=== PATIENT | male | born 1940 | race Caucasian/White ===

== ENCOUNTER 2019-05-09 08:47 | Inpatient (IN) ==
[2019-05-09] MEDS ORDERED: DEXTROSE 10% 250 ML BAG IV PRN (09:19)
[2019-05-09] MEDS ORDERED: GLUCAGON 1 MG VIAL IM PRN (09:19)
[2019-05-09 10:06] LABS: Basophils # 0.1 10*3/uL (0.0-0.2); Eosinophils # 0.3 10*3/uL (0.0-0.87); Eosinophils % 4.3 % (0.00-10.9); Hematocrit 42.6 VOL% (42.0-52.0); Immature Granulocytes % 0.3 %; Immature Granulocytes Absolute 0.02 #; Lymphocytes # 1.5 10*3/uL (1.4-4.0); Lymphocytes % 25.3 % (21.2-54.2); Mean Corpuscular HGB Conc 32.9 GM/DL (32-36); Mean Corpuscular Volume 92.2 FL (87-102); Mean Platelet Volume 9.9 FL (9.6-12.0); Monocytes % 15.5 % (1.7-12.7); Neutrophils % 53.6 % (38.7-73.9); Platelet Count 260 T/CUMM (130-400); Red Blood Count 4.62 MC/CUMM (3.8-5.5); Red Cell Distribution Width 12.6 % (9.3-17.3); White Blood Count 5.8 T/CUMM (4-12)
[2019-05-09 10:16] LABS: ABG Base Excess -0.4 MMOL/L (-2.5-2.5); ABG HCO3 24.3 MMOL/L (20-26); ABG Oxygen Saturation 96.9 % (95-100); ABG PCO2 39.8 MM HG (35-48); ABG PH 7.403 (7.35-7.45); ABG PO2 92.7 MM HG (80-95); ABG TCO2 25.5 MMOL/L (23-27)
[2019-05-09] MEDS ORDERED: NITROGLYCERIN SL 0.4 MG TABLET SL PRN (10:25)
[2019-05-09 10:37] LABS: Albumin 3.5 G/DL (3.4-5.0); Bilirubin,Total 0.8 MG/DL (0.2-1.0); Calcium 9.3 MG/DL (8.5-10.1); Osmolality,Calculated 271.1 MOS/KG (273-304); Total Protein 7.3 G/DL (6.4-8.3)
[2019-05-09] MEDS ORDERED: CLORAZEPATE 3.75 MG TABLET PO PRN (12:17)
[2019-05-09] MEDS: CHLORHEXIDINE 4% SOLN 118 ML BOTTLE TOP SCH ×2 (16:44→20:56)
[2019-05-09] MEDS: carvediloL 6.25 MG TABLET PO SCH (20:56)
[2019-05-09] MEDS: CHLORHEXIDINE 0.12% ORAL RINSE 60 ML BOTTLE SWISH/SPIT SCH (20:56)
[2019-05-10] MEDS ORDERED: PAPAVERINE 60 MG/2 ML VIAL ONE (04:21)
[2019-05-10] MEDS ORDERED: VANCOMYCIN 1,000 MG VIAL ONE (04:22)
[2019-05-10] MEDS ORDERED: VANCOMYCIN 500 MG VIAL ONE (04:22)
[2019-05-10] MEDS ORDERED: DIAZEPAM 5 MG TABLET PO ONE (04:55)
[2019-05-10] MEDS ORDERED: FAMOTIDINE 20 MG TABLET PO ONE (04:57)
[2019-05-10] MEDS ORDERED: SUFentanil 250 MCG/5 ML AMP ONE (06:04)
[2019-05-10] MEDS ORDERED: MIDAZOLAM 10 MG/2 ML VIAL ONE (06:04)
[2019-05-10] MEDS ORDERED: CEFUROXIME INJ 1,500 MG in SYRINGE 1 EACH IV ONE (07:00)
[2019-05-10 07:41] LABS: ABG Base Excess -1.2 MMOL/L (-2.5-2.5); ABG HCO3 23.5 MMOL/L (20-26); ABG Oxygen Saturation 99.9 % (95-100); ABG PCO2 38.7 MM HG (35-48); ABG PH 7.392 (7.35-7.45); ABG TCO2 20.8 MMOL/L (23-27); Glucose Heart Surgery 101 MG/DL (74-106); Hematocrit Heart Surgery 37.2 PERCENT (42-52); Hemoglobin Heart Surgery 12.1 G/DL (14.0-18.0); Ionized Calcium Arterial 1.15 MMOL/L (1.21-1.46); PCO2 Patient Temp Arterial 38.7 MMHG; PH Patient Temp Arterial 7.392; Patient Temperature 37 CELCIUS; Sodium Heart/CVR 137 MMOL/L (135-145)
[2019-05-10 07:57] LABS: Apearance,Urine CLEAR (Clear); Bilirubin,Urine Negative (Negative); Blood, Urine Moderate mg/dL (Negative); Glucose,Urine (UA) Negative (Negative); Ketones,Urine Negative (Negative); Mucus,Urine Occasional /LPF (Occasional); Nitrite,Urine Negative (Negative); Protein,Urine Negative; RBC,Urine 9 /HPF (0-4); Urine Color Yellow (Yellow); Urine Specific Gravity 1.016 (1.001-1.035); WBC,Urine <1 /HPF (0-6)
[2019-05-10 09:11] LABS: Hemoglobin Heart Surgery 8.4 G/DL (14.0-18.0); PCO2 Patient Temp Venous 30.7 MM HG; PH Patient Temp Venous 7.467; PO2 Patient Temp Venous 45.5 MM HG; Potassium Heart/CVR 4.8 MMOL/L (3.5-5.1); VBG Base Excess -1.8 MEQ/L (0-4); VBG HCO3 22.3 MEQ/L (24-28); VBG PH 7.422; VBG PO2 56.1 MMHG (17-40)
[2019-05-10 09:40] LABS: Hematocrit Heart Surgery 27.2 PERCENT (42-52); Hemoglobin Heart Surgery 8.8 G/DL (14.0-18.0); PH Patient Temp Venous 7.477; PO2 Patient Temp Venous 48.7 MM HG; Potassium Heart/CVR 4.9 MMOL/L (3.5-5.1); VBG Base Excess 1.9 MEQ/L (0-4); VBG HCO3 26.1 MEQ/L (24-28); VBG Oxygen Saturation 92.3 %; VBG PCO2 39.3 MMHG (41-51); VBG PH 7.433; VBG PO2 59.4 MMHG (17-40)
[2019-05-10 10:09] LABS: Hemoglobin Heart Surgery 9.6 G/DL (14.0-18.0); PCO2 Patient Temp Venous 32.4 MM HG; PH Patient Temp Venous 7.489; PO2 Patient Temp Venous 40.2 MM HG; Potassium Heart/CVR 5.3 MMOL/L (3.5-5.1); VBG Base Excess 0.9 MEQ/L (0-4); VBG HCO3 24.6 MEQ/L (24-28); VBG Oxygen Saturation 83.9 %; VBG PCO2 35.4 MMHG (41-51); VBG PH 7.459; VBG PO2 46.3 MMHG (17-40)
[2019-05-10] MEDS ORDERED: THROMBIN TOPICAL (RECOMBINANT) 5,000 UNIT VIAL TOP ONE (10:33)
[2019-05-10] MEDS ORDERED: MAGNESIUM SULFATE 5 GM/10 ML VIAL IV ONE (10:57)
[2019-05-10] MEDS ORDERED: DEXTROSE 5% KCL 20 MEQ 20 MEQ/1,000 ML BAG IV ONE (10:57)
[2019-05-10] MEDS ORDERED: ALBUMIN 25% 25 GM/100 ML VIAL IV ONE (10:57)
[2019-05-10] MEDS ORDERED: HEPARIN 10,000 UNIT/10 ML VIAL ONE (10:58)
[2019-05-10] MEDS ORDERED: FUROSEMIDE 20 MG/2 ML VIAL ONE (10:58)
[2019-05-10] MEDS ORDERED: MANNITOL 12.5 GM/50 ML VIAL IV ONE (10:58)
[2019-05-10] MEDS ORDERED: SODIUM BICARBONATE 50 MEQ/50 ML VIAL IV ONE (10:59)
[2019-05-10] MEDS ORDERED: methylPREDNISolone SOD SUC 1,000 MG/8 ML VIAL ONE (10:59)
[2019-05-10] MEDS ORDERED: LIDOCAINE 2% 5 ML VIAL ONE ×2 (10:59→12:00)
[2019-05-10] MEDS ORDERED: PROTAMINE SULFATE 250 MG/25 ML VIAL IV ONE (10:59)
[2019-05-10] MEDS ORDERED: MANNITOL 100 GM/500 ML BAG IV ONE (10:59)
[2019-05-10] MEDS ORDERED: PROTAMINE SULFATE 50 MG/5 ML VIAL IV ONE ×3 (10:59→12:33)
[2019-05-10 11:01] LABS: ABG Base Excess -0.8 MMOL/L (-2.5-2.5); ABG HCO3 23.8 MMOL/L (20-26); ABG PCO2 38.2 MM HG (35-48); ABG PH 7.402 (7.35-7.45); ABG TCO2 21.5 MMOL/L (23-27); Glucose Heart Surgery 179 MG/DL (74-106); Hematocrit Heart Surgery 31.6 PERCENT (42-52); Hemoglobin Heart Surgery 10.2 G/DL (14.0-18.0); Ionized Calcium Arterial 1.24 MMOL/L (1.21-1.46); PCO2 Patient Temp Arterial 38.2 MMHG; PH Patient Temp Arterial 7.402; Patient Temperature 37 CELCIUS; Potassium Heart/CVR 3.9 MMOL/L (3.5-5.1); Sodium Heart/CVR 134 MMOL/L (135-145)
[2019-05-10] MEDS ORDERED: ALBUMIN 5% 12.5 GM/250 ML VIAL IV ONE (11:33)
[2019-05-10] MEDS ORDERED: PHENYLEPHRINE DRIP 40 MG/250 ML PREMIX IV ONE (11:33)
[2019-05-10] MEDS ORDERED: ePHEDrine 50 MG/ML AMP ONE (12:00)
[2019-05-10] MEDS ORDERED: PHENYLEPHRINE DRIP 20 MG/250 ML PREMIX IV ONE (12:00)
[2019-05-10] MEDS ORDERED: VECURONIUM 10 MG VIAL IV ONE (12:00)
[2019-05-10] MEDS ORDERED: MINERAL OIL/PETROLATUM OPH OINT 3.5 GM TUBE ONE (12:00)
[2019-05-10] MEDS ORDERED: SEVOFLURANE 1 UNIT/15 MINUTE INH ONE (12:00)
[2019-05-10] MEDS ORDERED: CALCIUM CHLORIDE 1,000 MG/10 ML VIAL IV ONE (12:00)
[2019-05-10] MEDS ORDERED: AMINOCAPROIC ACID 5,000 MG/20 ML VIAL ONE (12:01)
[2019-05-10] MEDS ORDERED: SODIUM CHLORIDE 0.9% 1,000 ML IV ONE (12:01)
[2019-05-10] MEDS ORDERED: SUCCINYLCHOLINE 200 MG/10 ML VIAL ONE (12:01)
[2019-05-10] MEDS ORDERED: LACTATED RINGERS 1,000 ML IV ONE (12:01)
[2019-05-10] MEDS ORDERED: SODIUM CHLORIDE 0.9% 200 ML IV ONE (12:01)
[2019-05-10] MEDS ORDERED: SODIUM CHLORIDE 0.9% 250 ML IV ONE (12:01)
[2019-05-10] MEDS ORDERED: GLYCOPYRROLATE 0.4 MG/2 ML VIAL ONE (12:01)
[2019-05-10] MEDS ORDERED: ETOMIDATE 40 MG/20 ML VIAL IV ONE (12:01)
[2019-05-10] MEDS ORDERED: POTASSIUM CHLORIDE RIDER 10 MEQ in PREMIX 1 EACH IV PRN (12:10)
[2019-05-10] MEDS ORDERED: DEXTROSE 10% 250 ML BAG IV PRN ×2 (12:10)
[2019-05-10] MEDS ORDERED: NITROPRUSSIDE 100 MG in DEXTROSE 5% 250 ML IV PRN (12:10)
[2019-05-10] MEDS ORDERED: MIDAZOLAM 10 MG/2 ML VIAL IV PRN (12:10)
[2019-05-10] MEDS ORDERED: MORPHINE 10 MG/1 ML VIAL IV PRN (12:10)
[2019-05-10] MEDS ORDERED: LACTATED RINGERS 250 ML IV PRN (12:10)
[2019-05-10] MEDS ORDERED: MAGNESIUM SULF RIDER 4 GM in PREMIX 1 EACH IV PRN (12:10)
[2019-05-10] MEDS ORDERED: CHLORHEXIDINE 4% SOLN 118 ML BOTTLE TOP PRN (12:10)
[2019-05-10] MEDS ORDERED: MAGNESIUM SULF RIDER 2 GM in PREMIX 1 EACH IV PRN (12:10)
[2019-05-10] MEDS ORDERED: PHENYLEPHRINE DRIP 40 MG/250 ML PREMIX IV PRN (12:10)
[2019-05-10] MEDS ORDERED: INSULIN REGULAR 100 UNIT/ML IV PRN (12:10)
[2019-05-10] MEDS ORDERED: INSULIN REGULAR 100 UNIT/ML IV ONE (12:10)
[2019-05-10] MEDS ORDERED: INSULIN REGULAR DRIP 100 ML IV SCH (12:10)
[2019-05-10] MEDS ORDERED: CALCIUM CHLORIDE 1,000 MG/10 ML SYRINGE IV PRN (12:10)
[2019-05-10] MEDS ORDERED: SODIUM CHLORIDE 0.45% 1,000 ML IV SCH ×2 (12:10)
[2019-05-10] MEDS ORDERED: VECURONIUM 10 MG VIAL IV PRN ×2 (12:10)
[2019-05-10] MEDS ORDERED: ACETAMINOPHEN 650 MG SUPP RECTAL PRN (12:10)
[2019-05-10] MEDS ORDERED: ONDANSETRON 4 MG/2 ML VIAL IV PRN (12:10)
[2019-05-10] MEDS ORDERED: MORPHINE 4 MG/1 ML VIAL IV PRN (12:10)
[2019-05-10 12:16] LABS: ABG Base Excess -0.6 MMOL/L (-2.5-2.5); ABG HCO3 23.9 MMOL/L (20-26); ABG Oxygen Saturation 99.1 % (95-100); ABG PCO2 41.7 MM HG (35-48); ABG PH 7.377 (7.35-7.45); ABG TCO2 21.8 MMOL/L (23-27); Glucose Heart Surgery 165 MG/DL (74-106); Hematocrit Heart Surgery 36.4 PERCENT (42-52); Hemoglobin Heart Surgery 11.8 G/DL (14.0-18.0); Potassium Heart/CVR 3.7 MMOL/L (3.5-5.1)
[2019-05-10] MEDS: ALBUMIN 5% 12.5 GM in PREMIX 1 EACH IV PRN ×4 (12:18→21:12)
[2019-05-10] MEDS: LACTATED RINGERS 1,000 ML IV PRN ×4 (12:25→18:45)
[2019-05-10] MEDS: SODIUM CHLORIDE 0.9% 1,000 ML IV SCH (12:32)
[2019-05-10] MEDS: CHLORHEXIDINE 0.12% ORAL RINSE 60 ML BOTTLE SWISH/SPIT SCH ×2 (12:32→20:33)
[2019-05-10] MEDS: carvediloL 6.25 MG TABLET PO SCH (12:32)
[2019-05-10 12:36] LABS: Basophils % 0.4 % (0.0-0.8); CKMB % 4.5 %; Eosinophils # 0.1 10*3/uL (0.0-0.87); Eosinophils % 0.9 % (0.00-10.9); Immature Granulocytes % 0.6 %; Immature Granulocytes Absolute 0.05 #; Lymphocytes # 0.6 10*3/uL (1.4-4.0); Lymphocytes % 7.4 % (21.2-54.2); Mean Corpuscular HGB Conc 33.1 GM/DL (32-36); Mean Corpuscular Volume 90.7 FL (87-102); Monocytes % 6.6 % (1.7-12.7); Neutrophils % 84.1 % (38.7-73.9); Platelet Count 204 T/CUMM (130-400); Red Blood Count 3.86 MC/CUMM (3.8-5.5); Red Cell Distribution Width 12.4 % (9.3-17.3); White Blood Count 8.1 T/CUMM (4-12)
[2019-05-10] MEDS: CHLORHEXIDINE 4% SOLN 118 ML BOTTLE TOP SCH (12:36)
[2019-05-10 12:41] LABS: Hemoglobin 11.6 GM/DL (14.0-18.0); INR 1.2; PT Patient Result 12.9 SECS (9.6-12.2); Partial Thromboplastin Time 26.8 SECS (20.8-36.0); Troponin I 3.79 NG/ML (0.00-0.045)
[2019-05-10 12:42] LABS: Albumin 3.1 G/DL (3.4-5.0); Bilirubin,Total 2.2 MG/DL (0.2-1.0); Calcium 8.9 MG/DL (8.5-10.1); Total Protein 6.1 G/DL (6.4-8.3)
[2019-05-10 13:52] LABS: ABG Base Excess -1.3 MMOL/L (-2.5-2.5); ABG HCO3 23.3 MMOL/L (20-26); ABG Oxygen Saturation 99.3 % (95-100); ABG PCO2 40.2 MM HG (35-48); ABG PH 7.378 (7.35-7.45); ABG TCO2 21.6 MMOL/L (23-27); Glucose Heart Surgery 157 MG/DL (74-106); Hematocrit Heart Surgery 30.6 PERCENT (42-52); Hemoglobin Heart Surgery 9.9 G/DL (14.0-18.0); Potassium Heart/CVR 3.7 MMOL/L (3.5-5.1)
[2019-05-10] MEDS: POTASSIUM CHLORIDE RIDER 20 MEQ in PREMIX 1 EACH IV PRN ×2 (13:54→21:54)
[2019-05-10 14:53] LABS: VBG Base Excess -0.1 MEQ/L (0-4); VBG HCO3 23.7 MEQ/L (24-28); VBG Oxygen Saturation 60.7 %; VBG PCO2 46.7 MMHG (41-51); VBG PH 7.351; VBG PO2 34.2 MMHG (17-40)
[2019-05-10 15:32] LABS: ABG Base Excess -1.1 MMOL/L (-2.5-2.5); ABG HCO3 23.5 MMOL/L (20-26); ABG Oxygen Saturation 97.9 % (95-100); ABG PH 7.384 (7.35-7.45); ABG PO2 98.6 MM HG (80-95); ABG TCO2 21.7 MMOL/L (23-27); Glucose Heart Surgery 167 MG/DL (74-106); Hematocrit Heart Surgery 31.1 PERCENT (42-52); Hemoglobin Heart Surgery 10.1 G/DL (14.0-18.0)
[2019-05-10] MEDS: MIDAZOLAM 2 MG/2 ML VIAL IV PRN ×2 (16:08→17:40)
[2019-05-10 16:47] LABS: ABG Base Excess -1.5 MMOL/L (-2.5-2.5); ABG HCO3 23.2 MMOL/L (20-26); ABG Oxygen Saturation 98.3 % (95-100); ABG TCO2 21.6 MMOL/L (23-27); Glucose Heart Surgery 175 MG/DL (74-106); Hematocrit Heart Surgery 30.6 PERCENT (42-52); Hemoglobin Heart Surgery 9.9 G/DL (14.0-18.0); Potassium Heart/CVR 3.9 MMOL/L (3.5-5.1)
[2019-05-10 18:54] LABS: ABG Base Excess -0.9 MMOL/L (-2.5-2.5); ABG HCO3 23.7 MMOL/L (20-26); ABG Oxygen Saturation 98.5 % (95-100); ABG PCO2 42.6 MM HG (35-48); ABG PH 7.367 (7.35-7.45); ABG TCO2 22.2 MMOL/L (23-27); Glucose Heart Surgery 184 MG/DL (74-106); Hematocrit Heart Surgery 31.7 PERCENT (42-52); Hemoglobin Heart Surgery 10.3 G/DL (14.0-18.0); Potassium Heart/CVR 3.8 MMOL/L (3.5-5.1)
[2019-05-10] MEDS: CEFUROXIME INJ 1,500 MG in SYRINGE 1 EACH IV SCH (19:09)
[2019-05-10 19:47] LABS: ABG HCO3 23.6 MMOL/L (20-26); ABG Oxygen Saturation 98.2 % (95-100); ABG PCO2 42.6 MM HG (35-48); ABG PH 7.365 (7.35-7.45); ABG TCO2 22.3 MMOL/L (23-27); Glucose Heart Surgery 185 MG/DL (74-106); Hematocrit Heart Surgery 30.2 PERCENT (42-52); Hemoglobin Heart Surgery 9.8 G/DL (14.0-18.0); Potassium Heart/CVR 3.9 MMOL/L (3.5-5.1)
[2019-05-10] MEDS: INSULIN REGULAR 100 UNIT/ML SUBCUT SCH (20:31)
[2019-05-10 21:02] LABS: ABG Base Excess -0.9 MMOL/L (-2.5-2.5); ABG HCO3 23.7 MMOL/L (20-26); ABG Oxygen Saturation 98.5 % (95-100); ABG PCO2 47.1 MM HG (35-48); ABG PH 7.337 (7.35-7.45); ABG TCO2 23.1 MMOL/L (23-27); Glucose Heart Surgery 193 MG/DL (74-106); Hematocrit Heart Surgery 31.3 PERCENT (42-52); Hemoglobin Heart Surgery 10.1 G/DL (14.0-18.0)
[2019-05-10 21:27] LABS: CKMB % 3.3 %
[2019-05-10 21:45] LABS: Troponin I 4.29 NG/ML (0.00-0.045)
[2019-05-10 22:27] LABS: ABG Base Excess -0.2 MMOL/L (-2.5-2.5); ABG HCO3 24.3 MMOL/L (20-26); ABG Oxygen Saturation 99.1 % (95-100); ABG PCO2 31.2 MM HG (35-48); ABG PH 7.472 (7.35-7.45); ABG TCO2 20.8 MMOL/L (23-27); Glucose Heart Surgery 190 MG/DL (74-106); Hematocrit Heart Surgery 29.3 PERCENT (42-52); Hemoglobin Heart Surgery 9.4 G/DL (14.0-18.0); Potassium Heart/CVR 4.3 MMOL/L (3.5-5.1)
[2019-05-10 22:59] LABS: ABG Base Excess -0.7 MMOL/L (-2.5-2.5); ABG HCO3 23.9 MMOL/L (20-26); ABG Oxygen Saturation 99.3 % (95-100); ABG PCO2 32.5 MM HG (35-48); ABG PH 7.452 (7.35-7.45); ABG TCO2 20.7 MMOL/L (23-27); Glucose Heart Surgery 196 MG/DL (74-106); Hemoglobin Heart Surgery 9.7 G/DL (14.0-18.0); Potassium Heart/CVR 4.2 MMOL/L (3.5-5.1)
[2019-05-10 23:56] LABS: ABG Base Excess -1.2 MMOL/L (-2.5-2.5); ABG HCO3 23.4 MMOL/L (20-26); ABG Oxygen Saturation 99.3 % (95-100); ABG PCO2 35.1 MM HG (35-48); ABG PH 7.421 (7.35-7.45); ABG TCO2 20.8 MMOL/L (23-27); Glucose Heart Surgery 201 MG/DL (74-106); Hematocrit Heart Surgery 29.9 PERCENT (42-52); Hemoglobin Heart Surgery 9.7 G/DL (14.0-18.0)
[2019-05-11] MEDS: INSULIN REGULAR 100 UNIT/ML SUBCUT SCH ×3 (00:25→08:20)
[2019-05-11 00:50] LABS: ABG Base Excess -1.3 MMOL/L (-2.5-2.5); ABG HCO3 23.3 MMOL/L (20-26); ABG Oxygen Saturation 98.5 % (95-100); ABG PCO2 42.5 MM HG (35-48); ABG PH 7.361 (7.35-7.45); ABG TCO2 22.1 MMOL/L (23-27); Glucose Heart Surgery 203 MG/DL (74-106); Hematocrit Heart Surgery 29.1 PERCENT (42-52); Hemoglobin Heart Surgery 9.4 G/DL (14.0-18.0); Potassium Heart/CVR 3.8 MMOL/L (3.5-5.1)
[2019-05-11] MEDS: POTASSIUM CHLORIDE RIDER 20 MEQ in PREMIX 1 EACH IV PRN (01:02)
[2019-05-11 03:26] LABS: ABG Base Excess -1.5 MMOL/L (-2.5-2.5); ABG HCO3 23.2 MMOL/L (20-26); ABG Oxygen Saturation 97.2 % (95-100); ABG PCO2 43.2 MM HG (35-48); ABG PH 7.355 (7.35-7.45); ABG PO2 94.3 MM HG (80-95); ABG TCO2 21.8 MMOL/L (23-27); Glucose Heart Surgery 194 MG/DL (74-106); Hematocrit Heart Surgery 32.7 PERCENT (42-52); Hemoglobin Heart Surgery 10.6 G/DL (14.0-18.0); Potassium Heart/CVR 4.1 MMOL/L (3.5-5.1)
[2019-05-11 03:30] LABS: Basophils % 0.1 % (0.0-0.8); Hematocrit 30.4 VOL% (42.0-52.0); Hemoglobin 10.2 GM/DL (14.0-18.0); Immature Granulocytes % 0.4 %; Immature Granulocytes Absolute 0.03 #; Lymphocytes # 0.4 10*3/uL (1.4-4.0); Mean Corpuscular HGB Conc 33.6 GM/DL (32-36); Mean Corpuscular Volume 89.4 FL (87-102); Mean Platelet Volume 10.3 FL (9.6-12.0); Monocytes % 4.6 % (1.7-12.7); Neutrophils % 89.9 % (38.7-73.9); Platelet Count 137 T/CUMM (130-400); Red Cell Distribution Width 14.2 % (9.3-17.3); White Blood Count 8.3 T/CUMM (4-12)
[2019-05-11 03:45] LABS: Albumin 3.5 G/DL (3.4-5.0); Bilirubin,Direct 0.52 MG/DL (0.0-0.20); Calcium 8.2 MG/DL (8.5-10.1); Osmolality,Calculated 283.7 MOS/KG (273-304); Total Protein 5.9 G/DL (6.4-8.3)
[2019-05-11 03:59] LABS: Troponin I 3.54 NG/ML (0.00-0.045)
[2019-05-11] MEDS ORDERED: FUROSEMIDE 40 MG/4 ML VIAL IV ONE (05:03)
[2019-05-11] MEDS: CEFUROXIME INJ 1,500 MG in SYRINGE 1 EACH IV SCH ×2 (06:59→20:32)
[2019-05-11] MEDS: CHLORHEXIDINE 0.12% ORAL RINSE 60 ML BOTTLE SWISH/SPIT SCH ×3 (08:21→20:33)
[2019-05-11] MEDS: ALBUMIN 5% 12.5 GM in PREMIX 1 EACH IV PRN (08:39)
[2019-05-11] MEDS ORDERED: ALUMINUM/MAGNES/SIMETH MAX STR 30 ML UDCUP PO PRN (08:45)
[2019-05-11] MEDS ORDERED: POTASSIUM CHLORIDE 20 MEQ TABLET PO PRN (08:45)
[2019-05-11] MEDS ORDERED: GLUCAGON 1 MG VIAL IM PRN (08:45)
[2019-05-11] MEDS ORDERED: ZALEPLON 5 MG CAPSULE PO PRN (08:45)
[2019-05-11] MEDS ORDERED: MAGNESIUM HYDROXIDE SUSP 30 ML UDCUP PO PRN (08:45)
[2019-05-11] MEDS ORDERED: MAGNESIUM SULF RIDER 4 GM in PREMIX 1 EACH IV PRN (08:45)
[2019-05-11] MEDS ORDERED: MAGNESIUM SULF RIDER 2 GM in PREMIX 1 EACH IV PRN (08:45)
[2019-05-11] MEDS: FERROUS SULFATE 325 MG TABLET PO SCH (09:16)
[2019-05-11] MEDS: PANTOPRAZOLE 40 MG TABLET PO SCH (09:16)
[2019-05-11] MEDS: PARoxetine 10 MG TABLET PO SCH (09:16)
[2019-05-11] MEDS: DOCUSATE SODIUM 100 MG CAPSULE PO SCH (09:16)
[2019-05-11] MEDS: ONDANSETRON 4 MG/2 ML VIAL IV PRN (09:40)
[2019-05-11] MEDS: SODIUM CHLOR 0.45% KCL 20 MEQ 20 MEQ/1,000 ML BAG IV SCH (10:21)
[2019-05-11 12:39] LABS: CKMB % 2.6 %
[2019-05-11 12:43] LABS: Troponin I 2.85 NG/ML (0.00-0.045)
[2019-05-11] MEDS: oxyCODONE/ACETAMINOPHEN 5-325 MG TABLET PO PRN (14:24)
[2019-05-11] MEDS: carvediloL 6.25 MG TABLET PO SCH (20:32)
[2019-05-11] MEDS: ROSUVASTATIN 20 MG TABLET PO SCH (20:32)
[2019-05-12] MEDS: oxyCODONE/ACETAMINOPHEN 5-325 MG TABLET PO PRN ×2 (00:50→12:22)
[2019-05-12 04:35] LABS: Basophils % 0.1 % (0.0-0.8); Hematocrit 27.9 VOL% (42.0-52.0); Immature Granulocytes % 0.6 %; Immature Granulocytes Absolute 0.09 #; Lymphocytes # 1.2 10*3/uL (1.4-4.0); Lymphocytes % 7.4 % (21.2-54.2); Mean Corpuscular HGB Conc 32.3 GM/DL (32-36); Mean Platelet Volume 11.3 FL (9.6-12.0); Monocytes % 11.4 % (1.7-12.7); Neutrophils % 80.5 % (38.7-73.9); Platelet Count 148 T/CUMM (130-400); Red Cell Distribution Width 14.8 % (9.3-17.3); White Blood Count 16.1 T/CUMM (4-12)
[2019-05-12 05:12] LABS: Albumin 3.2 G/DL (3.4-5.0); Bilirubin,Direct 0.37 MG/DL (0.0-0.20); Bilirubin,Total 1.1 MG/DL (0.2-1.0); Calcium 8.2 MG/DL (8.5-10.1); Total Protein 5.8 G/DL (6.4-8.3)
[2019-05-12 05:16] LABS: Albumin 3.2 G/DL (3.4-5.0); Bilirubin,Direct 0.39 MG/DL (0.0-0.20); Bilirubin,Indirect 0.7 MG/DL (0.0-1.0); Bilirubin,Total 1.1 MG/DL (0.2-1.0); CKMB % 1.2 %; Total Protein 5.9 G/DL (6.4-8.3)
[2019-05-12 05:20] LABS: Troponin I 2.15 NG/ML (0.00-0.045)
[2019-05-12] MEDS ORDERED: FUROSEMIDE 40 MG/4 ML VIAL IV ONE (06:00)
[2019-05-12] MEDS: CHLORHEXIDINE 0.12% ORAL RINSE 60 ML BOTTLE SWISH/SPIT SCH ×2 (09:03→22:06)
[2019-05-12] MEDS: PARoxetine 10 MG TABLET PO SCH (09:04)
[2019-05-12] MEDS: PANTOPRAZOLE 40 MG TABLET PO SCH (09:04)
[2019-05-12] MEDS: DOCUSATE SODIUM 100 MG CAPSULE PO SCH (09:04)
[2019-05-12] MEDS: FERROUS SULFATE 325 MG TABLET PO SCH (09:04)
[2019-05-12] MEDS: amLODIPine 10 MG TABLET PO SCH (09:05)
[2019-05-12] MEDS: SODIUM CHLOR 0.45% KCL 20 MEQ 20 MEQ/1,000 ML BAG IV SCH (09:05)
[2019-05-12] MEDS: carvediloL 6.25 MG TABLET PO SCH (09:05)
[2019-05-12] MEDS: ONDANSETRON 4 MG/2 ML VIAL IV PRN (12:22)
[2019-05-12] MEDS: ASPIRIN EC 81 MG TABLET PO SCH (12:22)
[2019-05-12] MEDS: ROSUVASTATIN 20 MG TABLET PO SCH (22:06)
[2019-05-12] MEDS: carvediloL 3.125 MG TABLET PO SCH (22:06)
[2019-05-13] MEDS: oxyCODONE/ACETAMINOPHEN 5-325 MG TABLET PO PRN (01:40)
[2019-05-13 06:55] LABS: Basophils % 0.1 % (0.0-0.8); Eosinophils % 0.1 % (0.00-10.9); Hemoglobin 9.2 GM/DL (14.0-18.0); Immature Granulocytes % 0.7 %; Immature Granulocytes Absolute 0.08 #; Lymphocytes # 1.4 10*3/uL (1.4-4.0); Lymphocytes % 13.2 % (21.2-54.2); Mean Corpuscular HGB Conc 31.7 GM/DL (32-36); Mean Corpuscular Volume 93.5 FL (87-102); Mean Platelet Volume 11.4 FL (9.6-12.0); Monocytes % 12.6 % (1.7-12.7); Neutrophils % 73.3 % (38.7-73.9); Platelet Count 162 T/CUMM (130-400); Red Cell Distribution Width 14.3 % (9.3-17.3); White Blood Count 10.9 T/CUMM (4-12)
[2019-05-13 07:19] LABS: Albumin 3.1 G/DL (3.4-5.0); Bilirubin,Direct 0.38 MG/DL (0.0-0.20); Bilirubin,Total 1.1 MG/DL (0.2-1.0); Calcium 8.4 MG/DL (8.5-10.1); Osmolality,Calculated 280.1 MOS/KG (273-304)
[2019-05-13 07:30] LABS: Alanine Aminotransferase 34 U/L (16-61); Albumin 3.2 G/DL (3.4-5.0); Alkaline Phosphatase 63 U/L (45-117); Aspartate Amino Transferase 59 U/L (0-37); Bilirubin,Indirect 0.7 MG/DL (0.0-1.0); Total Protein 6.1 G/DL (6.4-8.3)
[2019-05-13] MEDS ORDERED: IBUPROFEN 200 MG TABLET PO PRN (08:25)
[2019-05-13] MEDS ORDERED: ACETAMINOPHEN 325 MG TABLET PO PRN (08:27)
[2019-05-13] MEDS: SODIUM CHLORIDE 0.9% 1,000 ML IV SCH ×2 (10:20→21:41)
[2019-05-13] MEDS: PARoxetine 10 MG TABLET PO SCH (10:20)
[2019-05-13] MEDS: DOCUSATE SODIUM 100 MG CAPSULE PO SCH (10:21)
[2019-05-13] MEDS: ASCORBIC ACID 500 MG TABLET PO SCH ×2 (10:21→21:52)
[2019-05-13] MEDS: PANTOPRAZOLE 40 MG TABLET PO SCH (10:21)
[2019-05-13] MEDS: FERROUS SULFATE 325 MG TABLET PO SCH (10:21)
[2019-05-13] MEDS: ASPIRIN EC 81 MG TABLET PO SCH (10:21)
[2019-05-13] MEDS: POTASSIUM CHLORIDE 20 MEQ TABLET PO SCH ×3 (10:21→13:50)
[2019-05-13] MEDS: carvediloL 3.125 MG TABLET PO SCH (10:21)
[2019-05-13] MEDS: CHLORHEXIDINE 0.12% ORAL RINSE 60 ML BOTTLE SWISH/SPIT SCH ×2 (10:33→21:51)
[2019-05-13] MEDS: amLODIPine 10 MG TABLET PO SCH (11:17)
[2019-05-13] MEDS ORDERED: LACTULOSE 20 GM/30 ML UDCUP PO PRN (16:19)
[2019-05-13] MEDS ORDERED: PHENYLEPHRINE DRIP 40 MG/250 ML PREMIX IV ONE (17:43)
[2019-05-13] MEDS ORDERED: ALBUMIN 5% 25 GM in PREMIX 1 EACH IV ONE (18:00)
[2019-05-13] MEDS: PHENYLEPHRINE DRIP 40 MG/250 ML PREMIX IV PRN (18:13)
[2019-05-13 18:30] LABS: Basophils % 0.1 % (0.0-0.8); Eosinophils % 0.5 % (0.00-10.9); Hematocrit 45.4 VOL% (42.0-52.0); Immature Granulocytes % 0.7 %; Immature Granulocytes Absolute 0.06 #; Lymphocytes # 1.8 10*3/uL (1.4-4.0); Lymphocytes % 21.7 % (21.2-54.2); Mean Corpuscular HGB Conc 31.5 GM/DL (32-36); Mean Corpuscular Volume 93.6 FL (87-102); Mean Platelet Volume 11.5 FL (9.6-12.0); Monocytes % 3.7 % (1.7-12.7); Neutrophils % 73.3 % (38.7-73.9); Platelet Count 227 T/CUMM (130-400); Red Blood Count 4.85 MC/CUMM (3.8-5.5); White Blood Count 8.1 T/CUMM (4-12)
[2019-05-13 18:35] LABS: Hemoglobin 14.3 GM/DL (14.0-18.0)
[2019-05-13 18:36] LABS: Osmolality,Calculated 285.2 MOS/KG (273-304)
[2019-05-13] MEDS ORDERED: PROMETHAZINE INJ 12.5 MG in SODIUM CHLORIDE 0.9% 50 ML IV ONE (19:23)
[2019-05-13 19:34] LABS: Hematocrit 40.8 VOL% (42.0-52.0); Hemoglobin 13.1 GM/DL (14.0-18.0)
[2019-05-13 19:53] LABS: ABG Base Excess -4.6 MMOL/L (-2.5-2.5); ABG HCO3 20.6 MMOL/L (20-26); ABG Oxygen Saturation 95.5 % (95-100); ABG PCO2 31.5 MM HG (35-48); ABG PH 7.394 (7.35-7.45); ABG PO2 81.9 MM HG (80-95); ABG TCO2 16.7 MMOL/L (23-27); Allen Test Positive
[2019-05-13] MEDS ORDERED: LACTATED RINGERS 500 ML IV ONE (20:36)
[2019-05-13] MEDS ORDERED: MINERAL OIL ENEMA 133 ML BOTTLE RECTAL ONE (21:34)
[2019-05-13] MEDS: ROSUVASTATIN 20 MG TABLET PO SCH (21:51)
[2019-05-13] MEDS: ONDANSETRON 4 MG/2 ML VIAL IV PRN (21:52)
[2019-05-14 00:30] LABS: ABG Base Excess -2.9 MMOL/L (-2.5-2.5); ABG Oxygen Saturation 94.7 % (95-100); ABG PCO2 29.6 MM HG (35-48); ABG PO2 73.3 MM HG (80-95); ABG TCO2 17.4 MMOL/L (23-27); Allen Test Positive
[2019-05-14] MEDS: PHENYLEPHRINE DRIP 40 MG/250 ML PREMIX IV PRN ×6 (00:33→22:30)
[2019-05-14 02:29] LABS: Alanine Aminotransferase 83 U/L (16-61); Albumin 2.8 G/DL (3.4-5.0); Alkaline Phosphatase 95 U/L (45-117); Aspartate Amino Transferase 201 U/L (0-37); Blood Urea Nitrogen 60 MG/DL (7-18); Calcium 7.6 MG/DL (8.5-10.1); Estimated Glom Filtration Rate 32 ML/MIN; Glucose 90 MG/DL (74-106); Osmolality,Calculated 286.1 MOS/KG (273-304); Total Protein 5.4 G/DL (6.4-8.3)
[2019-05-14 04:08] LABS: Basophils % 0.3 % (0.0-0.8); Hematocrit 37.5 VOL% (42.0-52.0); Hemoglobin 12.5 GM/DL (14.0-18.0); Immature Granulocytes % 0.3 %; Immature Granulocytes Absolute 0.04 #; Lymphocytes # 1.1 10*3/uL (1.4-4.0); Mean Corpuscular HGB Conc 33.3 GM/DL (32-36); Mean Corpuscular Volume 90.4 FL (87-102); Mean Platelet Volume 11.5 FL (9.6-12.0); Monocytes % 5.9 % (1.7-12.7); NRBC # 0.02 10*3/uL; Neutrophils % 86.5 % (38.7-73.9); Platelet Count 206 T/CUMM (130-400); Red Blood Count 4.15 MC/CUMM (3.8-5.5); Red Cell Distribution Width 13.9 % (9.3-17.3); White Blood Count 15.9 T/CUMM (4-12)
[2019-05-14] MEDS: ACETAMINOPHEN 325 MG TABLET PO PRN (04:18)
[2019-05-14] MEDS: SODIUM CHLORIDE 0.9% 1,000 ML IV SCH ×3 (04:32→20:08)
[2019-05-14 04:34] LABS: Band Neutrophils 9 % (0-10); Hypochromasia Slight; Lymphocytes 8 % (20-55); Ovalocytes Slight; Platelet Estimate Adequate; Segmented Neutrophils 80 % (50-85); Total Cells Counted 100
[2019-05-14 04:41] LABS: Calcium 7.5 MG/DL (8.5-10.1); Osmolality,Calculated 287.1 MOS/KG (273-304)
[2019-05-14] MEDS ORDERED: FUROSEMIDE 40 MG/4 ML VIAL IV ONE ×2 (06:07→16:35)
[2019-05-14] MEDS ORDERED: CLINDAMYCIN INJ 600 MG in PREMIX 1 EACH IV SCH (06:30)
[2019-05-14] MEDS ORDERED: LACTATED RINGERS 500 ML IV ONE ×3 (07:14→12:00)
[2019-05-14] MEDS ORDERED: LEVOFLOXACIN INJ 500 MG in PREMIX 1 EACH IV ONE (08:00)
[2019-05-14] MEDS: ASCORBIC ACID 500 MG TABLET PO SCH ×2 (08:01→21:17)
[2019-05-14] MEDS: FERROUS SULFATE 325 MG TABLET PO SCH (08:02)
[2019-05-14] MEDS: PIPERACILLIN/TAZOBACTAM 3,375 MG in SODIUM CHLORIDE 0.9% 100 ML IV SCH ×2 (08:02→16:11)
[2019-05-14] MEDS: DOCUSATE SODIUM 100 MG CAPSULE PO SCH (08:02)
[2019-05-14] MEDS: ASPIRIN EC 81 MG TABLET PO SCH (08:02)
[2019-05-14] MEDS: PARoxetine 10 MG TABLET PO SCH (08:02)
[2019-05-14] MEDS: CHLORHEXIDINE 0.12% ORAL RINSE 60 ML BOTTLE SWISH/SPIT SCH ×2 (08:02→21:17)
[2019-05-14] MEDS: PANTOPRAZOLE 40 MG TABLET PO SCH (08:02)
[2019-05-14 09:46] LABS: ABG Base Excess -5.1 MMOL/L (-2.5-2.5); ABG HCO3 20.1 MMOL/L (20-26); ABG Oxygen Saturation 91.9 % (95-100); ABG PCO2 32.2 MM HG (35-48); ABG PH 7.381 (7.35-7.45); ABG PO2 66.9 MM HG (80-95); ABG TCO2 17.1 MMOL/L (23-27); Allen Test Positive
[2019-05-14 10:36] LABS: Basophils % 0.2 % (0.0-0.8); Hematocrit 34.5 VOL% (42.0-52.0); Hemoglobin 11.2 GM/DL (14.0-18.0); Immature Granulocytes % 0.3 %; Immature Granulocytes Absolute 0.06 #; Lymphocytes # 1.1 10*3/uL (1.4-4.0); Mean Corpuscular HGB Conc 32.5 GM/DL (32-36); Mean Corpuscular Volume 92.5 FL (87-102); Mean Platelet Volume 11.5 FL (9.6-12.0); Monocytes % 6.7 % (1.7-12.7); NRBC # 0.02 10*3/uL; Neutrophils % 86.8 % (38.7-73.9); Platelet Count 206 T/CUMM (130-400); Red Blood Count 3.73 MC/CUMM (3.8-5.5); Red Cell Distribution Width 14.2 % (9.3-17.3); White Blood Count 17.6 T/CUMM (4-12)
[2019-05-14 10:56] LABS: Band Neutrophils 13 % (0-10); Lymphocytes 10 % (20-55); Metamyelocytes 2 %; Segmented Neutrophils 67 % (50-85); Total Cells Counted 100
[2019-05-14 10:57] LABS: Hypochromasia Slight; Microcytosis Slight; Polychromasia Slight
[2019-05-14 11:00] LABS: Bilirubin,Direct 1.01 MG/DL (0.0-0.20)
[2019-05-14 11:43] LABS: Albumin 2.4 G/DL (3.4-5.0); Bilirubin,Total 1.9 MG/DL (0.2-1.0); Calcium 7.1 MG/DL (8.5-10.1); Osmolality,Calculated 293.7 MOS/KG (273-304); Total Protein 4.8 G/DL (6.4-8.3)
[2019-05-14] MEDS ORDERED: ceFAZolin 1,000 MG in SYRINGE 1 EACH IV ONE (11:58)
[2019-05-14] MEDS ORDERED: EPINEPHrine 1 MG/ML VIAL ONE (15:22)
[2019-05-14] MEDS ORDERED: SEVOFLURANE 1 UNIT/15 MINUTE INH ONE (15:22)
[2019-05-14] MEDS ORDERED: fentaNYL 100 MCG/2 ML VIAL ONE (15:22)
[2019-05-14] MEDS ORDERED: ONDANSETRON 4 MG/2 ML VIAL ONE (15:22)
[2019-05-14] MEDS ORDERED: SODIUM CHLORIDE 0.9% 250 ML IV ONE (15:23)
[2019-05-14] MEDS ORDERED: LACTATED RINGERS 1,000 ML IV ONE (15:23)
[2019-05-14] MEDS ORDERED: ROCURONIUM 100 MG/10 ML VIAL IV ONE (15:23)
[2019-05-14] MEDS ORDERED: PHENYLEPHRINE 10 MG/1 ML VIAL IV ONE (15:23)
[2019-05-14] MEDS ORDERED: PHENYLEPHRINE 1 MG/10 ML SYRINGE IV ONE (15:23)
[2019-05-14] MEDS ORDERED: ETOMIDATE 40 MG/20 ML VIAL IV ONE (15:23)
[2019-05-14] MEDS ORDERED: SUCCINYLCHOLINE 200 MG/10 ML VIAL ONE (15:23)
[2019-05-14 15:37] LABS: ABG Base Excess -10.2 MMOL/L (-2.5-2.5); ABG HCO3 16.3 MMOL/L (20-26); ABG Oxygen Saturation 93.7 % (95-100); ABG PCO2 42.1 MM HG (35-48); ABG PH 7.219 (7.35-7.45); ABG PO2 87.2 MM HG (80-95); ABG TCO2 15.9 MMOL/L (23-27)
[2019-05-14] MEDS ORDERED: SODIUM BICARBONATE 50 MEQ/50 ML VIAL IV ONE (16:35)
[2019-05-14] MEDS ORDERED: FUROSEMIDE 40 MG/4 ML VIAL ONE (16:39)
[2019-05-14] MEDS: FUROSEMIDE INJ 100 MG in SODIUM CHLORIDE 0.9% 90 ML IV SCH (17:10)
[2019-05-14] MEDS: ROSUVASTATIN 20 MG TABLET PO SCH (21:17)
[2019-05-15] MEDS: PIPERACILLIN/TAZOBACTAM 3,375 MG in SODIUM CHLORIDE 0.9% 100 ML IV SCH ×4 (00:53→23:12)
[2019-05-15] MEDS: SODIUM CHLORIDE 0.9% 1,000 ML IV SCH ×6 (00:53→23:13)
[2019-05-15] MEDS: ACETAMINOPHEN 325 MG TABLET PO PRN (00:58)
[2019-05-15] MEDS: FUROSEMIDE INJ 100 MG in SODIUM CHLORIDE 0.9% 90 ML IV SCH (02:45)
[2019-05-15] MEDS: PHENYLEPHRINE DRIP 40 MG/250 ML PREMIX IV PRN ×8 (02:46→21:31)
[2019-05-15 02:51] LABS: Basophils # 0.1 10*3/uL (0.0-0.2); Basophils % 0.5 % (0.0-0.8); Eosinophils % 0.1 % (0.00-10.9); Hematocrit 30.9 VOL% (42.0-52.0); Hemoglobin 10.1 GM/DL (14.0-18.0); Immature Granulocytes % 2.7 %; Immature Granulocytes Absolute 0.29 #; Lymphocytes % 9.2 % (21.2-54.2); Mean Corpuscular HGB Conc 32.7 GM/DL (32-36); Mean Corpuscular Volume 93.1 FL (87-102); Mean Platelet Volume 11.9 FL (9.6-12.0); Monocytes % 5.9 % (1.7-12.7); NRBC # 0.03 10*3/uL; Neutrophils % 81.6 % (38.7-73.9); Platelet Count 218 T/CUMM (130-400); Red Blood Count 3.32 MC/CUMM (3.8-5.5); Red Cell Distribution Width 14.7 % (9.3-17.3); White Blood Count 10.9 T/CUMM (4-12)
[2019-05-15 03:11] LABS: Bilirubin,Direct 0.94 MG/DL (0.0-0.20); Bilirubin,Indirect 0.6 MG/DL (0.0-1.0); Bilirubin,Total 1.5 MG/DL (0.2-1.0); CKMB % 1.9 %; Calcium 6.4 MG/DL (8.5-10.1); Total Protein 4.3 G/DL (6.4-8.3)
[2019-05-15 03:14] LABS: Troponin I 31.1 NG/ML (0.00-0.045)
[2019-05-15 04:05] LABS: Band Neutrophils 17 % (0-10); Burr Cells 2+; Lymphocytes 7 % (20-55); Metamyelocytes 2 %; Platelet Estimate Normal; Polychromasia 1+; Segmented Neutrophils 71 % (50-85); Total Cells Counted 100
[2019-05-15 04:06] LABS: Microcytosis 1+; Target Cells Slight
[2019-05-15 04:09] LABS: ABG Base Excess -7.3 MMOL/L (-2.5-2.5); ABG HCO3 18.5 MMOL/L (20-26); ABG Oxygen Saturation 96.7 % (95-100); ABG PCO2 33.8 MM HG (35-48); ABG TCO2 16.2 MMOL/L (23-27); Allen Test Positive; Pt O2 Delivery Device Ventilator
[2019-05-15] MEDS ORDERED: LACTATED RINGERS 500 ML IV ONE (07:23)
[2019-05-15] MEDS: DEXTROSE 10% 250 ML BAG IV PRN (07:45)
[2019-05-15] MEDS: LEVOFLOXACIN INJ 250 MG in PREMIX 1 EACH IV SCH (08:17)
[2019-05-15] MEDS: PANTOPRAZOLE 40 MG TABLET PO SCH (08:18)
[2019-05-15] MEDS: PARoxetine 10 MG TABLET PO SCH (08:18)
[2019-05-15] MEDS: DOCUSATE SODIUM 100 MG CAPSULE PO SCH (08:18)
[2019-05-15] MEDS: ASCORBIC ACID 500 MG TABLET PO SCH ×2 (08:18→21:26)
[2019-05-15] MEDS: ASPIRIN EC 81 MG TABLET PO SCH (08:18)
[2019-05-15] MEDS: FERROUS SULFATE 325 MG TABLET PO SCH (08:19)
[2019-05-15] MEDS: CHLORHEXIDINE 0.12% ORAL RINSE 60 ML BOTTLE SWISH/SPIT SCH ×2 (08:19→21:26)
[2019-05-15] MEDS ORDERED: NOREPINEPHRINE 8 MG in SODIUM CHLORIDE 0.9% 242 ML IV PRN (09:52)
[2019-05-15] MEDS ORDERED: NOREPINEPHRINE 4 MG/4 ML VIAL IV ONE (09:53)
[2019-05-15] MEDS: ALBUMIN 25% 25 GM in PREMIX 1 EACH IV SCH ×2 (11:07→18:07)
[2019-05-15] MEDS ORDERED: AMIODARONE INJ 50 MG in DEXTROSE 5% 100 ML IV ONE (17:52)
[2019-05-15] MEDS ORDERED: AMIODARONE 450 MG/9 ML VIAL IV ONE (17:54)
[2019-05-15] MEDS ORDERED: AMIODARONE 150 MG/3 ML VIAL ONE (17:54)
[2019-05-15] MEDS: AMIODARONE INJ 450 MG in DEXTROSE 5% 241 ML IV SCH (18:16)
[2019-05-15 19:49] LABS: Allen Test Positive; Pt O2 Delivery Device Ventilator
[2019-05-15 19:50] LABS: ABG Base Excess -9.5 MMOL/L (-2.5-2.5); ABG HCO3 16.8 MMOL/L (20-26); ABG Oxygen Saturation 97.8 % (95-100); ABG PCO2 32.8 MM HG (35-48); ABG PH 7.299 (7.35-7.45)
[2019-05-15 20:45] LABS: Calcium 6.3 MG/DL (8.5-10.1); Osmolality,Calculated 306.4 MOS/KG (273-304)
[2019-05-15] MEDS: ROSUVASTATIN 20 MG TABLET PO SCH (21:26)
[2019-05-16] MEDS: PHENYLEPHRINE DRIP 40 MG/250 ML PREMIX IV PRN ×6 (01:16→21:00)
[2019-05-16 02:52] LABS: ABG Base Excess -11.5 MMOL/L (-2.5-2.5); ABG HCO3 15.3 MMOL/L (20-26); ABG Oxygen Saturation 97.7 % (95-100); ABG PCO2 30.1 MM HG (35-48); ABG PH 7.281 (7.35-7.45); ABG TCO2 13.2 MMOL/L (23-27); Allen Test Positive; Pt O2 Delivery Device Ventilator
[2019-05-16] MEDS: ALBUMIN 25% 25 GM in PREMIX 1 EACH IV SCH (03:51)
[2019-05-16 04:27] LABS: Basophils # 0.1 10*3/uL (0.0-0.2); Basophils % 0.4 % (0.0-0.8); Eosinophils % 0.1 % (0.00-10.9); Hematocrit 27.7 VOL% (42.0-52.0); Hemoglobin 8.6 GM/DL (14.0-18.0); Immature Granulocytes % 1.8 %; Immature Granulocytes Absolute 0.24 #; Lymphocytes # 0.9 10*3/uL (1.4-4.0); Lymphocytes % 6.4 % (21.2-54.2); Mean Corpuscular Volume 98.2 FL (87-102); Mean Platelet Volume 11.7 FL (9.6-12.0); Monocytes % 5.6 % (1.7-12.7); NRBC # 0.18 10*3/uL; Neutrophils % 85.7 % (38.7-73.9); Platelet Count 198 T/CUMM (130-400); Red Blood Count 2.82 MC/CUMM (3.8-5.5); Red Cell Distribution Width 15.4 % (9.3-17.3); White Blood Count 13.4 T/CUMM (4-12)
[2019-05-16 04:54] LABS: Albumin 2.3 G/DL (3.4-5.0); Bilirubin,Direct 2.19 MG/DL (0.0-0.20); Bilirubin,Total 3.2 MG/DL (0.2-1.0); CKMB % 0.8 %; Calcium 6.3 MG/DL (8.5-10.1); Osmolality,Calculated 305.4 MOS/KG (273-304); Total Protein 4.4 G/DL (6.4-8.3)
[2019-05-16 04:56] LABS: Troponin I 30.3 NG/ML (0.00-0.045)
[2019-05-16 05:02] LABS: Band Neutrophils 5 % (0-10); Eosinophils 1 % (0-10); Hypochromasia 1+; Lymphocytes 7 % (20-55); Nucleated Red Blood Cells 3 (0-5); Platelet Estimate Adequate; Segmented Neutrophils 81 % (50-85); Total Cells Counted 100
[2019-05-16 05:03] LABS: Burr Cells Slight; Microcytosis Slight; Ovalocytes Slight; Polychromasia Slight
[2019-05-16] MEDS: SODIUM CHLORIDE 0.9% 1,000 ML IV SCH ×2 (05:27→07:00)
[2019-05-16] MEDS: PIPERACILLIN/TAZOBACTAM 3,375 MG in SODIUM CHLORIDE 0.9% 100 ML IV SCH ×3 (07:08→23:24)
[2019-05-16] MEDS ORDERED: DEXTROSE 5% LACTATED RINGERS 1,000 ML IV SCH (08:30)
[2019-05-16] MEDS: DOCUSATE SODIUM 100 MG CAPSULE PO SCH (08:42)
[2019-05-16] MEDS: FERROUS SULFATE 325 MG TABLET PO SCH (08:44)
[2019-05-16] MEDS: CHLORHEXIDINE 0.12% ORAL RINSE 60 ML BOTTLE SWISH/SPIT SCH ×2 (08:44→21:01)
[2019-05-16] MEDS: ASPIRIN EC 81 MG TABLET PO SCH (08:44)
[2019-05-16] MEDS: ASCORBIC ACID 500 MG TABLET PO SCH ×2 (08:44→20:54)
[2019-05-16] MEDS: PARoxetine 10 MG TABLET PO SCH (08:44)
[2019-05-16] MEDS: PANTOPRAZOLE 40 MG TABLET PO SCH (08:45)
[2019-05-16] MEDS: LEVOFLOXACIN INJ 250 MG in PREMIX 1 EACH IV SCH (08:45)
[2019-05-16] MEDS: AMIODARONE INJ 450 MG in DEXTROSE 5% 241 ML IV SCH ×2 (09:59→10:22)
[2019-05-16] MEDS: SODIUM BICARB INJ 50 MEQ in DEXTROSE 5% NACL 0.45% 1,000 ML IV SCH ×2 (11:54→21:00)
[2019-05-16] MEDS: MORPHINE 4 MG/1 ML VIAL IV PRN (15:55)
[2019-05-17] MEDS: MORPHINE 4 MG/1 ML VIAL IV PRN ×3 (00:12→11:04)
[2019-05-17] MEDS: PHENYLEPHRINE DRIP 40 MG/250 ML PREMIX IV PRN ×3 (01:00→14:25)
[2019-05-17 04:05] LABS: ABG Base Excess -8.5 MMOL/L (-2.5-2.5); ABG HCO3 17.5 MMOL/L (20-26); ABG Oxygen Saturation 94.5 % (95-100); ABG PCO2 36.7 MM HG (35-48); ABG PH 7.286 (7.35-7.45); ABG PO2 87.7 MM HG (80-95); ABG TCO2 16.1 MMOL/L (23-27); Allen Test Positive; Pt O2 Delivery Device Ventilator
[2019-05-17 04:57] LABS: Basophils # 0.1 10*3/uL (0.0-0.2); Basophils % 0.3 % (0.0-0.8); Eosinophils # 0.2 10*3/uL (0.0-0.87); Eosinophils % 0.8 % (0.00-10.9); Hematocrit 28.1 VOL% (42.0-52.0); Hemoglobin 8.6 GM/DL (14.0-18.0); Immature Granulocytes % 1.3 %; Immature Granulocytes Absolute 0.23 #; Lymphocytes # 0.8 10*3/uL (1.4-4.0); Lymphocytes % 4.2 % (21.2-54.2); Mean Corpuscular HGB Conc 30.6 GM/DL (32-36); Mean Corpuscular Volume 96.6 FL (87-102); Mean Platelet Volume 11.6 FL (9.6-12.0); Monocytes % 2.7 % (1.7-12.7); NRBC # 0.16 10*3/uL; Neutrophils % 90.7 % (38.7-73.9); Platelet Count 166 T/CUMM (130-400); Red Blood Count 2.91 MC/CUMM (3.8-5.5); Red Cell Distribution Width 15.5 % (9.3-17.3); White Blood Count 18.1 T/CUMM (4-12)
[2019-05-17 05:20] LABS: Band Neutrophils 3 % (0-10); Eosinophils 2 % (0-10); Lymphocytes 2 % (20-55); Nucleated Red Blood Cells 3 (0-5); Platelet Estimate Adequate; Segmented Neutrophils 89 % (50-85); Total Cells Counted 100
[2019-05-17 05:21] LABS: Hypochromasia 1+; Microcytosis Slight; Ovalocytes Slight
[2019-05-17 05:28] LABS: Albumin 2.1 G/DL (3.4-5.0); Bilirubin,Total 4.1 MG/DL (0.2-1.0); CKMB % 0.9 %; Osmolality,Calculated 312.4 MOS/KG (273-304); Total Protein 4.1 G/DL (6.4-8.3)
[2019-05-17 05:32] LABS: Calcium 5.7 MG/DL (8.5-10.1); Troponin I 23.7 NG/ML (0.00-0.045)
[2019-05-17] MEDS: SODIUM BICARB INJ 50 MEQ in DEXTROSE 5% NACL 0.45% 1,000 ML IV SCH (05:54)
[2019-05-17] MEDS: PIPERACILLIN/TAZOBACTAM 3,375 MG in SODIUM CHLORIDE 0.9% 100 ML IV SCH ×3 (06:00→23:49)
[2019-05-17] MEDS: DOCUSATE SODIUM 100 MG CAPSULE PO SCH (09:05)
[2019-05-17] MEDS: FERROUS SULFATE 325 MG TABLET PO SCH (09:05)
[2019-05-17] MEDS: ASPIRIN EC 81 MG TABLET PO SCH (09:05)
[2019-05-17] MEDS: PARoxetine 10 MG TABLET PO SCH (09:05)
[2019-05-17] MEDS: ASCORBIC ACID 500 MG TABLET PO SCH ×2 (09:05→20:14)
[2019-05-17] MEDS: CHLORHEXIDINE 0.12% ORAL RINSE 60 ML BOTTLE SWISH/SPIT SCH ×2 (09:06→20:14)
[2019-05-17] MEDS: PANTOPRAZOLE 40 MG VIAL IV SCH (09:06)
[2019-05-17] MEDS: LEVOFLOXACIN INJ 250 MG in PREMIX 1 EACH IV SCH (09:06)
[2019-05-17] MEDS: CALCIUM GLUCONATE IV SCH ×2 (12:20→22:44)
[2019-05-17] MEDS: DEXTROSE 5% IV SCH ×2 (12:20→22:44)
[2019-05-17] MEDS: NACL 0.9% IV SCH ×2 (12:20→22:44)
[2019-05-17 12:40] LABS: Hepatitis B Core IgM Quant < 0.05 Index; Hepatitis B Surface Ag Quant < 0.10 Index; Hepatitis B Surface Ag Result Negative (Negative); Hepatitis C Virus Ab Result Negative (Negative)
[2019-05-17] MEDS ORDERED: AMIODARONE INJ 450 MG in DEXTROSE 5% 241 ML IV SCH (17:00)
[2019-05-18] MEDS: AMIODARONE INJ 450 MG in DEXTROSE 5% 241 ML IV SCH ×2 (00:10→16:13)
[2019-05-18] MEDS: PHENYLEPHRINE DRIP 40 MG/250 ML PREMIX IV PRN ×3 (02:57→16:54)
[2019-05-18 04:34] LABS: Basophils % 0.2 % (0.0-0.8); Eosinophils # 0.2 10*3/uL (0.0-0.87); Eosinophils % 1.7 % (0.00-10.9); Hematocrit 27.7 VOL% (42.0-52.0); Hemoglobin 8.7 GM/DL (14.0-18.0); Immature Granulocytes % 4.3 %; Immature Granulocytes Absolute 0.59 #; Lymphocytes # 0.7 10*3/uL (1.4-4.0); Lymphocytes % 5.4 % (21.2-54.2); Mean Corpuscular HGB Conc 31.4 GM/DL (32-36); Mean Corpuscular Volume 95.2 FL (87-102); Mean Platelet Volume 11.7 FL (9.6-12.0); Monocytes % 6.1 % (1.7-12.7); Neutrophils % 82.3 % (38.7-73.9); Platelet Count 150 T/CUMM (130-400); Red Blood Count 2.91 MC/CUMM (3.8-5.5); Red Cell Distribution Width 15.8 % (9.3-17.3); White Blood Count 13.8 T/CUMM (4-12)
[2019-05-18 05:46] LABS: Albumin 1.7 G/DL (3.4-5.0); Bilirubin,Total 4.2 MG/DL (0.2-1.0); Calcium 6.4 MG/DL (8.5-10.1); Osmolality,Calculated 303.4 MOS/KG (273-304); Total Protein 3.5 G/DL (6.4-8.3)
[2019-05-18 05:49] LABS: Eosinophils 2 % (0-10); Lymphocytes 3 % (20-55); Nucleated Red Blood Cells 1 (0-5); Platelet Estimate Normal; Polychromasia Few; Segmented Neutrophils 95 % (50-85); Total Cells Counted 100
[2019-05-18 05:53] LABS: Troponin I 14.9 NG/ML (0.00-0.045)
[2019-05-18] MEDS: PIPERACILLIN/TAZOBACTAM 3,375 MG in SODIUM CHLORIDE 0.9% 100 ML IV SCH ×3 (06:45→23:48)
[2019-05-18] MEDS: LEVOFLOXACIN INJ 250 MG in PREMIX 1 EACH IV SCH ×2 (07:35→07:49)
[2019-05-18] MEDS: DEXTROSE 5% IV SCH ×2 (08:55→19:22)
[2019-05-18] MEDS: CALCIUM GLUCONATE IV SCH ×2 (08:55→19:22)
[2019-05-18] MEDS: NACL 0.9% IV SCH ×2 (08:55→19:22)
[2019-05-18] MEDS: FERROUS SULFATE 325 MG TABLET PO SCH (10:19)
[2019-05-18] MEDS: DOCUSATE SODIUM 100 MG CAPSULE PO SCH (10:19)
[2019-05-18] MEDS: ASCORBIC ACID 500 MG TABLET PO SCH ×2 (10:19→20:14)
[2019-05-18] MEDS: PARoxetine 10 MG TABLET PO SCH (10:19)
[2019-05-18] MEDS: ASPIRIN EC 81 MG TABLET PO SCH (10:19)
[2019-05-18] MEDS: CHLORHEXIDINE 0.12% ORAL RINSE 60 ML BOTTLE SWISH/SPIT SCH ×2 (10:20→20:14)
[2019-05-18] MEDS ORDERED: HEPARIN 10,000 UNIT/10 ML VIAL IV SCH (10:30)
[2019-05-18] MEDS: ALBUMIN 25% 25 GM in PREMIX 1 EACH IV SCH (11:14)
[2019-05-18] MEDS: PANTOPRAZOLE 40 MG VIAL IV SCH (11:38)
[2019-05-19 04:07] LABS: ABG Base Excess -5.2 MMOL/L (-2.5-2.5); ABG HCO3 20.1 MMOL/L (20-26); ABG Oxygen Saturation 96.6 % (95-100); ABG PCO2 35.3 MM HG (35-48); ABG PH 7.355 (7.35-7.45); ABG PO2 91.9 MM HG (80-95); ABG TCO2 18.2 MMOL/L (23-27); Allen Test Positive; Pt O2 Delivery Device Ventilator
[2019-05-19 04:53] LABS: Albumin 1.8 G/DL (3.4-5.0); Bilirubin,Total 4.5 MG/DL (0.2-1.0); Calcium 7.7 MG/DL (8.5-10.1); Osmolality,Calculated 294.5 MOS/KG (273-304); Total Protein 4.2 G/DL (6.4-8.3)
[2019-05-19 05:00] LABS: Basophils % 0.2 % (0.0-0.8); Eosinophils # 0.2 10*3/uL (0.0-0.87); Eosinophils % 1.5 % (0.00-10.9); Hematocrit 27.9 VOL% (42.0-52.0); Hemoglobin 8.7 GM/DL (14.0-18.0); Immature Granulocytes % 4.5 %; Immature Granulocytes Absolute 0.67 #; Lymphocytes # 0.9 10*3/uL (1.4-4.0); Lymphocytes % 5.7 % (21.2-54.2); Mean Corpuscular HGB Conc 31.2 GM/DL (32-36); Mean Corpuscular Volume 94.9 FL (87-102); Mean Platelet Volume 11.8 FL (9.6-12.0); Monocytes % 6.9 % (1.7-12.7); NRBC # 0.18 10*3/uL; Neutrophils % 81.2 % (38.7-73.9); Platelet Count 141 T/CUMM (130-400); Red Blood Count 2.94 MC/CUMM (3.8-5.5); Red Cell Distribution Width 15.9 % (9.3-17.3); White Blood Count 14.9 T/CUMM (4-12)
[2019-05-19] MEDS: MORPHINE 4 MG/1 ML VIAL IV PRN (05:09)
[2019-05-19 05:30] LABS: Band Neutrophils 3 % (0-10); Eosinophils 2 % (0-10); Lymphocytes 7 % (20-55); Segmented Neutrophils 82 % (50-85); Total Cells Counted 100
[2019-05-19 05:31] LABS: Hypochromasia 1+; Microcytosis Slight; Ovalocytes Slight; Platelet Estimate Adequate
[2019-05-19] MEDS: CALCIUM GLUCONATE IV SCH ×2 (05:43→18:00)
[2019-05-19] MEDS: NACL 0.9% IV SCH ×2 (05:43→18:00)
[2019-05-19] MEDS: DEXTROSE 5% IV SCH ×2 (05:43→18:00)
[2019-05-19] MEDS: PIPERACILLIN/TAZOBACTAM 3,375 MG in SODIUM CHLORIDE 0.9% 100 ML IV SCH ×3 (07:23→23:19)
[2019-05-19] MEDS: AMIODARONE INJ 450 MG in DEXTROSE 5% 241 ML IV SCH ×2 (07:49→23:19)
[2019-05-19] MEDS: LEVOFLOXACIN INJ 250 MG in PREMIX 1 EACH IV SCH (07:53)
[2019-05-19] MEDS: ASCORBIC ACID 500 MG TABLET PO SCH ×2 (09:42→21:34)
[2019-05-19] MEDS: PARoxetine 10 MG TABLET PO SCH (09:42)
[2019-05-19] MEDS: FERROUS SULFATE 325 MG TABLET PO SCH (09:42)
[2019-05-19] MEDS: DOCUSATE SODIUM 100 MG CAPSULE PO SCH (09:42)
[2019-05-19] MEDS: ALBUMIN 25% 25 GM in PREMIX 1 EACH IV SCH (09:42)
[2019-05-19] MEDS: ASPIRIN EC 81 MG TABLET PO SCH (09:43)
[2019-05-19] MEDS: CHLORHEXIDINE 0.12% ORAL RINSE 60 ML BOTTLE SWISH/SPIT SCH ×2 (09:43→21:35)
[2019-05-19] MEDS: PANTOPRAZOLE 40 MG VIAL IV SCH (12:39)
[2019-05-19] MEDS: HEPARIN 5,000 UNIT/1 ML VIAL SUBCUT SCH ×2 (17:00→21:34)
[2019-05-20] MEDS: NACL 0.9% IV SCH ×2 (04:03→16:10)
[2019-05-20] MEDS: DEXTROSE 5% IV SCH ×2 (04:03→16:10)
[2019-05-20] MEDS: CALCIUM GLUCONATE IV SCH ×2 (04:03→16:10)
[2019-05-20 04:10] LABS: Allen Test Positive; Pt O2 Delivery Device Ventilator
[2019-05-20 04:14] LABS: ABG Base Excess -5.4 MMOL/L (-2.5-2.5); ABG HCO3 18.6 MMOL/L (20-26); ABG Oxygen Saturation 98.5 % (95-100); ABG PCO2 32.6 MM HG (35-48); ABG PH 7.375 (7.35-7.45); ABG PO2 126.4 MM HG (80-95); ABG TCO2 19.6 MMOL/L (23-27)
[2019-05-20 04:46] LABS: Basophils % 0.2 % (0.0-0.8); Eosinophils # 0.1 10*3/uL (0.0-0.87); Hematocrit 28.3 VOL% (42.0-52.0); Hemoglobin 8.8 GM/DL (14.0-18.0); Immature Granulocytes % 4.1 %; Immature Granulocytes Absolute 0.57 #; Lymphocytes # 0.8 10*3/uL (1.4-4.0); Lymphocytes % 5.9 % (21.2-54.2); Mean Corpuscular HGB Conc 31.1 GM/DL (32-36); Mean Corpuscular Volume 94.3 FL (87-102); Mean Platelet Volume 12.1 FL (9.6-12.0); Monocytes % 7.6 % (1.7-12.7); NRBC # 0.09 10*3/uL; Neutrophils % 81.2 % (38.7-73.9); Platelet Count 127 T/CUMM (130-400); Red Cell Distribution Width 16.4 % (9.3-17.3)
[2019-05-20 05:21] LABS: Bilirubin,Total 4.6 MG/DL (0.2-1.0); Calcium 7.8 MG/DL (8.5-10.1); Osmolality,Calculated 291.5 MOS/KG (273-304); Total Protein 4.4 G/DL (6.4-8.3)
[2019-05-20 06:12] LABS: Eosinophils 1 % (0-10); Lymphocytes 4 % (20-55); Nucleated Red Blood Cells 1 (0-5); Platelet Estimate Decreased; Polychromasia Few; Segmented Neutrophils 90 % (50-85); Total Cells Counted 100
[2019-05-20] MEDS: HEPARIN 5,000 UNIT/1 ML VIAL SUBCUT SCH ×3 (07:05→21:36)
[2019-05-20] MEDS: PIPERACILLIN/TAZOBACTAM 3,375 MG in SODIUM CHLORIDE 0.9% 100 ML IV SCH ×3 (07:05→23:02)
[2019-05-20] MEDS: PANTOPRAZOLE 40 MG VIAL IV SCH (12:00)
[2019-05-20] MEDS: CHLORHEXIDINE 0.12% ORAL RINSE 60 ML BOTTLE SWISH/SPIT SCH ×2 (12:00→21:36)
[2019-05-20] MEDS: ASPIRIN EC 81 MG TABLET PO SCH (12:00)
[2019-05-20] MEDS: FERROUS SULFATE 325 MG TABLET PO SCH (12:00)
[2019-05-20] MEDS: ASCORBIC ACID 500 MG TABLET PO SCH ×2 (12:00→21:36)
[2019-05-20] MEDS: ALBUMIN 25% 25 GM in PREMIX 1 EACH IV SCH (12:00)
[2019-05-20] MEDS: LEVOFLOXACIN INJ 250 MG in PREMIX 1 EACH IV SCH (12:00)
[2019-05-20] MEDS: PARoxetine 10 MG TABLET PO SCH (12:00)
[2019-05-20] MEDS: AMIODARONE INJ 450 MG in DEXTROSE 5% 241 ML IV SCH (15:20)
[2019-05-20] MEDS: DOCUSATE SODIUM 100 MG CAPSULE PO SCH (18:54)
[2019-05-21 03:39] LABS: Basophils % 0.2 % (0.0-0.8); Eosinophils # 0.1 10*3/uL (0.0-0.87); Eosinophils % 0.8 % (0.00-10.9); Hematocrit 28.8 VOL% (42.0-52.0); Immature Granulocytes % 2.4 %; Lymphocytes % 5.8 % (21.2-54.2); Mean Corpuscular HGB Conc 31.3 GM/DL (32-36); Mean Corpuscular Volume 95.4 FL (87-102); Monocytes % 7.2 % (1.7-12.7); NRBC # 0.04 10*3/uL; Neutrophils % 83.6 % (38.7-73.9); Platelet Count 112 T/CUMM (130-400); Red Blood Count 3.02 MC/CUMM (3.8-5.5); Red Cell Distribution Width 17.2 % (9.3-17.3)
[2019-05-21 04:04] LABS: Calcium 7.6 MG/DL (8.5-10.1); Osmolality,Calculated 297.7 MOS/KG (273-304); Prealbumin 4.5 MG/DL (20-40)
[2019-05-21] MEDS: CALCIUM GLUCONATE IV SCH ×2 (04:30→15:36)
[2019-05-21] MEDS: NACL 0.9% IV SCH ×2 (04:30→15:36)
[2019-05-21] MEDS: DEXTROSE 5% IV SCH ×2 (04:30→15:36)
[2019-05-21 05:05] LABS: Allen Test Positive; Pt O2 Delivery Device Ventilator
[2019-05-21 05:06] LABS: ABG Base Excess -6.9 MMOL/L (-2.5-2.5); ABG HCO3 18.8 MMOL/L (20-26); ABG Oxygen Saturation 97.3 % (95-100); ABG PCO2 37.6 MM HG (35-48); ABG PH 7.308 (7.35-7.45); ABG TCO2 17.5 MMOL/L (23-27)
[2019-05-21] MEDS: HEPARIN 5,000 UNIT/1 ML VIAL SUBCUT SCH ×3 (06:23→21:36)
[2019-05-21] MEDS: ASCORBIC ACID 500 MG TABLET PO SCH ×2 (08:45→21:37)
[2019-05-21] MEDS: PARoxetine 10 MG TABLET PO SCH (08:45)
[2019-05-21] MEDS: ASPIRIN EC 81 MG TABLET PO SCH (08:45)
[2019-05-21] MEDS: DOCUSATE SODIUM 100 MG CAPSULE PO SCH (08:45)
[2019-05-21] MEDS: LEVOFLOXACIN INJ 250 MG in PREMIX 1 EACH IV SCH (08:45)
[2019-05-21] MEDS: CHLORHEXIDINE 0.12% ORAL RINSE 60 ML BOTTLE SWISH/SPIT SCH ×2 (08:47→21:37)
[2019-05-21] MEDS: FERROUS SULFATE 325 MG TABLET PO SCH (09:03)
[2019-05-21] MEDS: AMIODARONE INJ 450 MG in DEXTROSE 5% 241 ML IV SCH (09:03)
[2019-05-21] MEDS: PANTOPRAZOLE 40 MG VIAL IV SCH (09:03)
[2019-05-21] MEDS: PIPERACILLIN/TAZOBACTAM 3,375 MG in SODIUM CHLORIDE 0.9% 100 ML IV SCH ×3 (09:06→23:43)
[2019-05-21] MEDS: ALBUMIN 25% 25 GM in PREMIX 1 EACH IV SCH (10:14)
[2019-05-21] MEDS: MORPHINE 4 MG/1 ML VIAL IV PRN ×2 (10:20→18:14)
[2019-05-21] MEDS ORDERED: hydrALAZINE 20 MG/1 ML VIAL IV PRN (16:53)
[2019-05-22] MEDS: AMIODARONE INJ 450 MG in DEXTROSE 5% 241 ML IV SCH (00:53)
[2019-05-22] MEDS: NACL 0.9% IV SCH ×3 (02:33→23:33)
[2019-05-22] MEDS: DEXTROSE 5% IV SCH ×3 (02:33→23:33)
[2019-05-22] MEDS: CALCIUM GLUCONATE IV SCH ×3 (02:33→23:33)
[2019-05-22 04:08] LABS: ABG Base Excess -6.9 MMOL/L (-2.5-2.5); ABG HCO3 18.9 MMOL/L (20-26); ABG Oxygen Saturation 98.7 % (95-100); ABG PCO2 38.8 MM HG (35-48); ABG PH 7.305 (7.35-7.45); ABG PO2 151.5 MM HG (80-95); ABG TCO2 20.1 MMOL/L (23-27); Allen Test Positive; Pt O2 Delivery Device Ventilator
[2019-05-22 05:28] LABS: Basophils # 0.1 10*3/uL (0.0-0.2); Basophils % 0.3 % (0.0-0.8); Eosinophils # 0.2 10*3/uL (0.0-0.87); Hematocrit 27.5 VOL% (42.0-52.0); Hemoglobin 8.5 GM/DL (14.0-18.0); Immature Granulocytes % 2.1 %; Immature Granulocytes Absolute 0.38 #; Lymphocytes # 0.9 10*3/uL (1.4-4.0); Lymphocytes % 5.1 % (21.2-54.2); Mean Corpuscular HGB Conc 30.9 GM/DL (32-36); Mean Corpuscular Volume 95.2 FL (87-102); Mean Platelet Volume 13.1 FL (9.6-12.0); Monocytes % 6.6 % (1.7-12.7); NRBC # 0.03 10*3/uL; Neutrophils % 84.9 % (38.7-73.9); Red Blood Count 2.89 MC/CUMM (3.8-5.5); Red Cell Distribution Width 17.7 % (9.3-17.3); White Blood Count 17.9 T/CUMM (4-12)
[2019-05-22 05:29] LABS: Platelet Count 93 T/CUMM (130-400)
[2019-05-22 05:49] LABS: Band Neutrophils 2 % (0-10); Hypochromasia 1+; Lymphocytes 6 % (20-55); Ovalocytes Slight; Platelet Estimate Decreased; Segmented Neutrophils 88 % (50-85); Total Cells Counted 100
[2019-05-22 05:55] LABS: Albumin 1.7 G/DL (3.4-5.0); Bilirubin,Total 4.2 MG/DL (0.2-1.0); Calcium 7.8 MG/DL (8.5-10.1); Osmolality,Calculated 290.8 MOS/KG (273-304)
[2019-05-22] MEDS: HEPARIN 5,000 UNIT/1 ML VIAL SUBCUT SCH ×3 (06:02→23:25)
[2019-05-22] MEDS: PIPERACILLIN/TAZOBACTAM 3,375 MG in SODIUM CHLORIDE 0.9% 100 ML IV SCH ×3 (07:28→23:25)
[2019-05-22] MEDS: AMIODARONE 200 MG TABLET NG SCH ×2 (09:16→21:19)
[2019-05-22] MEDS: ASPIRIN EC 81 MG TABLET PO SCH (09:16)
[2019-05-22] MEDS: PANTOPRAZOLE 40 MG VIAL IV SCH (09:16)
[2019-05-22] MEDS: FERROUS SULFATE 325 MG TABLET PO SCH (09:17)
[2019-05-22] MEDS: ASCORBIC ACID 500 MG TABLET PO SCH ×2 (09:17→21:19)
[2019-05-22] MEDS: PARoxetine 10 MG TABLET PO SCH (09:17)
[2019-05-22] MEDS: DOCUSATE SODIUM 100 MG CAPSULE PO SCH (09:17)
[2019-05-22] MEDS: CHLORHEXIDINE 0.12% ORAL RINSE 60 ML BOTTLE SWISH/SPIT SCH ×2 (10:00→21:19)
[2019-05-22] MEDS ORDERED: ALBUTEROL/IPRATROPIUM 3 ML NEB RESP TX PRN (10:13)
[2019-05-22] MEDS: LEVOFLOXACIN INJ 250 MG in PREMIX 1 EACH IV SCH (10:16)
[2019-05-23 04:36] LABS: ABG Base Excess -9.2 MMOL/L (-2.5-2.5); ABG Oxygen Saturation 98.1 % (95-100); ABG PCO2 40.4 MM HG (35-48); ABG PH 7.248 (7.35-7.45); ABG TCO2 16.4 MMOL/L (23-27)
[2019-05-23 06:03] LABS: Basophils % 0.2 % (0.0-0.8); Eosinophils # 0.2 10*3/uL (0.0-0.87); Eosinophils % 1.1 % (0.00-10.9); Hematocrit 29.3 VOL% (42.0-52.0); Immature Granulocytes % 2.1 %; Immature Granulocytes Absolute 0.36 #; Mean Corpuscular HGB Conc 30.7 GM/DL (32-36); Mean Corpuscular Volume 96.1 FL (87-102); Mean Platelet Volume 13.6 FL (9.6-12.0); Monocytes % 7.4 % (1.7-12.7); NRBC # 0.03 10*3/uL; Neutrophils % 83.2 % (38.7-73.9); Platelet Count 100 T/CUMM (130-400); Red Blood Count 3.05 MC/CUMM (3.8-5.5); Red Cell Distribution Width 18.2 % (9.3-17.3); White Blood Count 17.4 T/CUMM (4-12)
[2019-05-23] MEDS: HEPARIN 5,000 UNIT/1 ML VIAL SUBCUT SCH ×3 (06:13→21:24)
[2019-05-23 06:31] LABS: Albumin 1.4 G/DL (3.4-5.0); Bilirubin,Total 3.9 MG/DL (0.2-1.0); Calcium 8.1 MG/DL (8.5-10.1); Osmolality,Calculated 297.8 MOS/KG (273-304)
[2019-05-23] MEDS: PIPERACILLIN/TAZOBACTAM 3,375 MG in SODIUM CHLORIDE 0.9% 100 ML IV SCH ×3 (06:59→22:58)
[2019-05-23] MEDS: LEVOFLOXACIN INJ 250 MG in PREMIX 1 EACH IV SCH (09:50)
[2019-05-23] MEDS: DOCUSATE SODIUM 100 MG CAPSULE PO SCH (09:51)
[2019-05-23] MEDS: AMIODARONE 200 MG TABLET NG SCH ×2 (09:51→21:23)
[2019-05-23] MEDS: PANTOPRAZOLE 40 MG VIAL IV SCH (09:51)
[2019-05-23] MEDS: PARoxetine 10 MG TABLET PO SCH (09:52)
[2019-05-23] MEDS: FERROUS SULFATE 325 MG TABLET PO SCH (09:52)
[2019-05-23] MEDS: CHLORHEXIDINE 0.12% ORAL RINSE 60 ML BOTTLE SWISH/SPIT SCH ×2 (09:52→21:25)
[2019-05-23] MEDS: ASCORBIC ACID 500 MG TABLET PO SCH ×2 (09:53→21:23)
[2019-05-23] MEDS: DEXTROSE 5% IV SCH ×2 (09:53→18:40)
[2019-05-23] MEDS: ASPIRIN EC 81 MG TABLET PO SCH (09:53)
[2019-05-23] MEDS: CALCIUM GLUCONATE IV SCH ×2 (09:53→18:40)
[2019-05-23] MEDS: NACL 0.9% IV SCH ×2 (09:53→18:40)
[2019-05-24 04:28] LABS: ABG Base Excess -8.6 MMOL/L (-2.5-2.5); ABG HCO3 17.5 MMOL/L (20-26); ABG Oxygen Saturation 97.7 % (95-100); ABG PCO2 45.3 MM HG (35-48); ABG PH 7.227 (7.35-7.45); ABG TCO2 17.6 MMOL/L (23-27); Allen Test Positive; Pt O2 Delivery Device Ventilator
[2019-05-24 04:53] LABS: Basophils # 0.1 10*3/uL (0.0-0.2); Basophils % 0.2 % (0.0-0.8); Eosinophils # 0.1 10*3/uL (0.0-0.87); Eosinophils % 0.6 % (0.00-10.9); Hemoglobin 9.6 GM/DL (14.0-18.0); Immature Granulocytes % 2.9 %; Immature Granulocytes Absolute 0.58 #; Lymphocytes # 0.9 10*3/uL (1.4-4.0); Lymphocytes % 4.3 % (21.2-54.2); Mean Corpuscular Volume 95.4 FL (87-102); Mean Platelet Volume 13.6 FL (9.6-12.0); Monocytes % 7.9 % (1.7-12.7); NRBC # 0.06 10*3/uL; Neutrophils % 84.1 % (38.7-73.9); Platelet Count 122 T/CUMM (130-400); Red Blood Count 3.25 MC/CUMM (3.8-5.5); White Blood Count 20.2 T/CUMM (4-12)
[2019-05-24] MEDS: DEXTROSE 5% IV SCH ×3 (05:03→16:41)
[2019-05-24] MEDS: NACL 0.9% IV SCH ×3 (05:03→16:41)
[2019-05-24] MEDS: CALCIUM GLUCONATE IV SCH ×3 (05:03→16:41)
[2019-05-24 05:17] LABS: Eosinophils 3 % (0-10); Lymphocytes 5 % (20-55); Segmented Neutrophils 83 % (50-85)
[2019-05-24 05:19] LABS: Hypochromasia Slight; Platelet Estimate Adequate
[2019-05-24 05:20] LABS: Polychromasia 1+; Total Cells Counted 100
[2019-05-24 05:27] LABS: Albumin 1.4 G/DL (3.4-5.0); Bilirubin,Total 4.6 MG/DL (0.2-1.0); Total Protein 4.4 G/DL (6.4-8.3)
[2019-05-24 05:28] LABS: Calcium 7.5 MG/DL (8.5-10.1); Osmolality,Calculated 291.8 MOS/KG (273-304); Prealbumin 8.1 MG/DL (20-40)
[2019-05-24] MEDS: HEPARIN 5,000 UNIT/1 ML VIAL SUBCUT SCH ×3 (06:22→21:07)
[2019-05-24] MEDS: PIPERACILLIN/TAZOBACTAM 3,375 MG in SODIUM CHLORIDE 0.9% 100 ML IV SCH ×3 (06:23→22:28)
[2019-05-24 08:40] LABS: Apearance,Urine Slightly Hazy (Clear); Bilirubin,Urine Negative (Negative); Blood, Urine Large mg/dL (Negative); Glucose,Urine (UA) 150 mg/dL (Negative); Ketones,Urine Negative (Negative); Nitrite,Urine Negative (Negative); Protein,Urine 100 MG/DL; RBC,Urine 277 /HPF (0-4); Urine Color Amber (Yellow); Urine Urobilinogen < 2.0 EU/DL (0.2-1.0); WBC,Urine 12 /HPF (0-6)
[2019-05-24] MEDS: LEVOFLOXACIN INJ 250 MG in PREMIX 1 EACH IV SCH (08:41)
[2019-05-24] MEDS: ASCORBIC ACID 500 MG TABLET PO SCH ×2 (09:07→21:06)
[2019-05-24] MEDS: PANTOPRAZOLE 40 MG VIAL IV SCH (09:07)
[2019-05-24] MEDS: PARoxetine 10 MG TABLET PO SCH (09:07)
[2019-05-24] MEDS: FERROUS SULFATE 325 MG TABLET PO SCH (09:07)
[2019-05-24] MEDS: DOCUSATE SODIUM 100 MG CAPSULE PO SCH (09:08)
[2019-05-24] MEDS: ASPIRIN EC 81 MG TABLET PO SCH (09:08)
[2019-05-24] MEDS: CHLORHEXIDINE 0.12% ORAL RINSE 60 ML BOTTLE SWISH/SPIT SCH ×2 (09:08→21:13)
[2019-05-24] MEDS: AMIODARONE 200 MG TABLET NG SCH ×2 (09:08→21:07)
[2019-05-24 15:01] LABS: Apearance,Urine CLOUDY (Clear); Bacteria,Urine Occasional /HPF (Few); Bilirubin,Urine Negative (Negative); Blood, Urine Large mg/dL (Negative); Glucose,Urine (UA) 50 mg/dL (Negative); Ketones,Urine Negative (Negative); Nitrite,Urine Negative (Negative); Protein,Urine 100 MG/DL; RBC,Urine 68 /HPF (0-4); Squamous Epithelial Cell,Urine Occasional /HPF (0-10); Urine Color Amber (Yellow); Urine Urobilinogen < 2.0 EU/DL (0.2-1.0); WBC,Urine 165 /HPF (0-6)
[2019-05-25] MEDS: CALCIUM GLUCONATE IV SCH ×2 (00:56→10:48)
[2019-05-25] MEDS: DEXTROSE 5% IV SCH ×2 (00:56→10:48)
[2019-05-25] MEDS: NACL 0.9% IV SCH ×2 (00:56→10:48)
[2019-05-25 02:18] LABS: ABG Base Excess -10.4 MMOL/L (-2.5-2.5); ABG HCO3 16.2 MMOL/L (20-26); ABG Oxygen Saturation 97.2 % (95-100); ABG PCO2 39.7 MM HG (35-48); ABG PH 7.232 (7.35-7.45); ABG TCO2 15.5 MMOL/L (23-27); Allen Test Positive; Pt O2 Delivery Device Ventilator
[2019-05-25 04:51] LABS: Basophils # 0.1 10*3/uL (0.0-0.2); Basophils % 0.3 % (0.0-0.8); Eosinophils # 0.2 10*3/uL (0.0-0.87); Eosinophils % 0.9 % (0.00-10.9); Hematocrit 31.7 VOL% (42.0-52.0); Hemoglobin 9.8 GM/DL (14.0-18.0); Immature Granulocytes % 1.9 %; Immature Granulocytes Absolute 0.37 #; Lymphocytes % 5.1 % (21.2-54.2); Mean Corpuscular HGB Conc 30.9 GM/DL (32-36); Mean Corpuscular Volume 96.1 FL (87-102); Mean Platelet Volume 13.3 FL (9.6-12.0); NRBC # 0.05 10*3/uL; Neutrophils % 82.8 % (38.7-73.9); Platelet Count 125 T/CUMM (130-400); White Blood Count 19.2 T/CUMM (4-12)
[2019-05-25 05:03] LABS: Albumin 1.3 G/DL (3.4-5.0); Bilirubin,Total 5.3 MG/DL (0.2-1.0); Total Protein 4.4 G/DL (6.4-8.3)
[2019-05-25 05:19] LABS: Calcium 7.6 MG/DL (8.5-10.1); Osmolality,Calculated 301.8 MOS/KG (273-304); Prealbumin 8.7 MG/DL (20-40)
[2019-05-25] MEDS: HEPARIN 5,000 UNIT/1 ML VIAL SUBCUT SCH ×3 (06:04→21:06)
[2019-05-25] MEDS: PIPERACILLIN/TAZOBACTAM 3,375 MG in SODIUM CHLORIDE 0.9% 100 ML IV SCH ×3 (06:11→23:12)
[2019-05-25] MEDS: LEVOFLOXACIN INJ 250 MG in PREMIX 1 EACH IV SCH (08:06)
[2019-05-25] MEDS: PARoxetine 10 MG TABLET PO SCH (09:01)
[2019-05-25] MEDS: AMIODARONE 200 MG TABLET NG SCH ×2 (09:01→20:54)
[2019-05-25] MEDS: DOCUSATE SODIUM 100 MG CAPSULE PO SCH (09:01)
[2019-05-25] MEDS: PANTOPRAZOLE 40 MG VIAL IV SCH ×2 (09:02→20:54)
[2019-05-25] MEDS: FERROUS SULFATE 325 MG TABLET PO SCH (09:02)
[2019-05-25] MEDS: CHLORHEXIDINE 0.12% ORAL RINSE 60 ML BOTTLE SWISH/SPIT SCH ×2 (09:02→20:57)
[2019-05-25] MEDS: ASPIRIN EC 81 MG TABLET PO SCH (09:02)
[2019-05-25] MEDS: ASCORBIC ACID 500 MG TABLET PO SCH ×2 (09:45→20:54)
[2019-05-25] MEDS: PHENYLEPHRINE DRIP 40 MG/250 ML PREMIX IV PRN (15:52)
[2019-05-25 16:12] LABS: Basophils # 0.1 10*3/uL (0.0-0.2); Basophils % 0.2 % (0.0-0.8); Eosinophils # 0.1 10*3/uL (0.0-0.87); Eosinophils % 0.4 % (0.00-10.9); Hematocrit 33.4 VOL% (42.0-52.0); Hemoglobin 10.4 GM/DL (14.0-18.0); Immature Granulocytes % 3.1 %; Immature Granulocytes Absolute 0.77 #; Lymphocytes # 1.1 10*3/uL (1.4-4.0); Lymphocytes % 4.5 % (21.2-54.2); Mean Corpuscular HGB Conc 31.1 GM/DL (32-36); Mean Corpuscular Volume 96.5 FL (87-102); Mean Platelet Volume 12.9 FL (9.6-12.0); Monocytes % 6.8 % (1.7-12.7); NRBC # 0.14 10*3/uL; Platelet Count 161 T/CUMM (130-400); Red Blood Count 3.46 MC/CUMM (3.8-5.5); Red Cell Distribution Width 20.7 % (9.3-17.3); White Blood Count 24.9 T/CUMM (4-12)
[2019-05-25 16:43] LABS: Eosinophils 1 % (0-10); Lymphocytes 5 % (20-55); Macrocytosis 1+; Polychromasia 2+; Segmented Neutrophils 90 % (50-85); Total Cells Counted 100
[2019-05-25 16:45] LABS: Atypical Lymphocytes Few; Platelet Estimate Normal
[2019-05-25] MEDS: MORPHINE 4 MG/1 ML VIAL IV PRN (23:50)
[2019-05-26 04:40] LABS: ABG Base Excess -11.5 MMOL/L (-2.5-2.5); ABG HCO3 14.6 MMOL/L (20-26); ABG Oxygen Saturation 95.9 % (95-100); ABG PCO2 33.3 MM HG (35-48); ABG PH 7.259 (7.35-7.45); ABG PO2 92.4 MM HG (80-95); ABG TCO2 15.6 MMOL/L (23-27); Allen Test Positive; Pt O2 Delivery Device Ventilator
[2019-05-26 05:03] LABS: Basophils % 0.2 % (0.0-0.8); Eosinophils % 0.1 % (0.00-10.9); Hematocrit 30.3 VOL% (42.0-52.0); Hemoglobin 9.6 GM/DL (14.0-18.0); Immature Granulocytes % 1.7 %; Lymphocytes # 0.9 10*3/uL (1.4-4.0); Lymphocytes % 3.8 % (21.2-54.2); Mean Corpuscular HGB Conc 31.7 GM/DL (32-36); Mean Corpuscular Volume 95.6 FL (87-102); Mean Platelet Volume 12.7 FL (9.6-12.0); Monocytes % 6.6 % (1.7-12.7); NRBC # 0.05 10*3/uL; Neutrophils % 87.6 % (38.7-73.9); Platelet Count 150 T/CUMM (130-400); Red Blood Count 3.17 MC/CUMM (3.8-5.5); Red Cell Distribution Width 20.9 % (9.3-17.3); White Blood Count 23.7 T/CUMM (4-12)
[2019-05-26 05:30] LABS: Albumin 1.1 G/DL (3.4-5.0); Total Protein 4.3 G/DL (6.4-8.3)
[2019-05-26 05:57] LABS: Lymphocytes 5 % (20-55); Nucleated Red Blood Cells 1 (0-5); Segmented Neutrophils 93 % (50-85); Total Cells Counted 100
[2019-05-26 05:58] LABS: Anisocytosis 1+; Ovalocytes 1+; Polychromasia Few
[2019-05-26 05:59] LABS: Platelet Estimate Normal
[2019-05-26] MEDS: DEXTROSE 5% IV SCH (06:21)
[2019-05-26] MEDS: CALCIUM GLUCONATE IV SCH (06:21)
[2019-05-26] MEDS: NACL 0.9% IV SCH (06:21)
[2019-05-26] MEDS: PIPERACILLIN/TAZOBACTAM 3,375 MG in SODIUM CHLORIDE 0.9% 100 ML IV SCH ×3 (06:25→23:00)
[2019-05-26] MEDS: HEPARIN 5,000 UNIT/1 ML VIAL SUBCUT SCH ×3 (06:29→22:00)
[2019-05-26] MEDS: PHENYLEPHRINE DRIP 40 MG/250 ML PREMIX IV PRN ×2 (08:50→15:05)
[2019-05-26] MEDS: PARoxetine 10 MG TABLET PO SCH (09:02)
[2019-05-26] MEDS: ASPIRIN EC 81 MG TABLET PO SCH (09:02)
[2019-05-26] MEDS: DOCUSATE SODIUM 100 MG CAPSULE PO SCH (09:02)
[2019-05-26] MEDS: FERROUS SULFATE 325 MG TABLET PO SCH (09:02)
[2019-05-26] MEDS: AMIODARONE 200 MG TABLET NG SCH ×2 (09:12→21:42)
[2019-05-26] MEDS: PANTOPRAZOLE 40 MG VIAL IV SCH ×2 (09:12→21:43)
[2019-05-26] MEDS: ASCORBIC ACID 500 MG TABLET PO SCH ×2 (09:43→21:56)
[2019-05-26] MEDS: CHLORHEXIDINE 0.12% ORAL RINSE 60 ML BOTTLE SWISH/SPIT SCH ×2 (10:41→21:42)
[2019-05-26] MEDS: LEVOFLOXACIN INJ 250 MG in PREMIX 1 EACH IV SCH (10:57)
[2019-05-26] MEDS: SODIUM BICARBONATE 650 MG TABLET PER TUBE SCH ×2 (15:02→21:46)
[2019-05-26] MEDS: MORPHINE 4 MG/1 ML VIAL IV PRN (23:32)
[2019-05-27 04:16] LABS: ABG Base Excess -13.1 MMOL/L (-2.5-2.5); ABG HCO3 14.4 MMOL/L (20-26); ABG Oxygen Saturation 94.4 % (95-100); ABG PCO2 32.1 MM HG (35-48); ABG PH 7.235 (7.35-7.45); ABG PO2 89.6 MM HG (80-95); ABG TCO2 12.3 MMOL/L (23-27); Allen Test Positive; Pt O2 Delivery Device Ventilator
[2019-05-27 04:20] LABS: Basophils % 0.2 % (0.0-0.8); Eosinophils # 0.1 10*3/uL (0.0-0.87); Eosinophils % 0.3 % (0.00-10.9); Hematocrit 29.2 VOL% (42.0-52.0); Hemoglobin 9.5 GM/DL (14.0-18.0); Immature Granulocytes % 1.5 %; Immature Granulocytes Absolute 0.29 #; Lymphocytes # 0.9 10*3/uL (1.4-4.0); Lymphocytes % 4.3 % (21.2-54.2); Mean Corpuscular HGB Conc 32.5 GM/DL (32-36); Mean Corpuscular Volume 93.3 FL (87-102); Mean Platelet Volume 12.9 FL (9.6-12.0); Monocytes % 6.3 % (1.7-12.7); NRBC # 0.06 10*3/uL; Neutrophils % 87.4 % (38.7-73.9); Platelet Count 177 T/CUMM (130-400); Red Blood Count 3.13 MC/CUMM (3.8-5.5); Red Cell Distribution Width 21.6 % (9.3-17.3); White Blood Count 19.6 T/CUMM (4-12)
[2019-05-27 05:15] LABS: Albumin 1.2 G/DL (3.4-5.0); Bilirubin,Total 6.7 MG/DL (0.2-1.0); Calcium 7.8 MG/DL (8.5-10.1); Total Protein 4.6 G/DL (6.4-8.3)
[2019-05-27 05:16] LABS: Lymphocytes 5 % (20-55); Nucleated Red Blood Cells 1 (0-5); Platelet Estimate Normal; Segmented Neutrophils 91 % (50-85); Total Cells Counted 100
[2019-05-27 05:17] LABS: Anisocytosis 2+; Polychromasia Few
[2019-05-27 05:18] LABS: Microcytosis 1+; Target Cells Few
[2019-05-27] MEDS: HEPARIN 5,000 UNIT/1 ML VIAL SUBCUT SCH ×3 (07:21→22:20)
[2019-05-27] MEDS: PIPERACILLIN/TAZOBACTAM 3,375 MG in SODIUM CHLORIDE 0.9% 100 ML IV SCH ×3 (07:36→23:00)
[2019-05-27] MEDS: LEVOFLOXACIN INJ 250 MG in PREMIX 1 EACH IV SCH (07:50)
[2019-05-27] MEDS: PARoxetine 10 MG TABLET PO SCH (08:45)
[2019-05-27] MEDS: SODIUM BICARBONATE 650 MG TABLET PER TUBE SCH ×3 (08:45→20:59)
[2019-05-27] MEDS: FERROUS SULFATE 325 MG TABLET PO SCH (08:45)
[2019-05-27] MEDS: AMIODARONE 200 MG TABLET NG SCH ×2 (08:46→20:58)
[2019-05-27] MEDS: DOCUSATE SODIUM 100 MG CAPSULE PO SCH (08:46)
[2019-05-27] MEDS: ASCORBIC ACID 500 MG TABLET PO SCH ×2 (08:46→20:59)
[2019-05-27] MEDS: ASPIRIN EC 81 MG TABLET PO SCH (08:46)
[2019-05-27] MEDS: CHLORHEXIDINE 0.12% ORAL RINSE 60 ML BOTTLE SWISH/SPIT SCH ×2 (08:47→21:11)
[2019-05-27] MEDS: PANTOPRAZOLE 40 MG VIAL IV SCH ×2 (08:47→20:57)
[2019-05-28 04:42] LABS: Basophils % 0.2 % (0.0-0.8); Eosinophils # 0.1 10*3/uL (0.0-0.87); Eosinophils % 0.4 % (0.00-10.9); Hematocrit 29.2 VOL% (42.0-52.0); Hemoglobin 9.6 GM/DL (14.0-18.0); Immature Granulocytes % 1.8 %; Immature Granulocytes Absolute 0.33 #; Lymphocytes # 0.8 10*3/uL (1.4-4.0); Lymphocytes % 4.4 % (21.2-54.2); Mean Corpuscular HGB Conc 32.9 GM/DL (32-36); Mean Corpuscular Volume 92.4 FL (87-102); Mean Platelet Volume 12.7 FL (9.6-12.0); Monocytes % 5.8 % (1.7-12.7); NRBC # 0.09 10*3/uL; Neutrophils % 87.4 % (38.7-73.9); Platelet Count 174 T/CUMM (130-400); Red Blood Count 3.16 MC/CUMM (3.8-5.5); Red Cell Distribution Width 22.2 % (9.3-17.3); White Blood Count 18.7 T/CUMM (4-12)
[2019-05-28 05:05] LABS: ABG Base Excess -13.6 MMOL/L (-2.5-2.5); ABG HCO3 13.9 MMOL/L (20-26); ABG Oxygen Saturation 96.6 % (95-100); ABG TCO2 11.9 MMOL/L (23-27); Allen Test Positive; Pt O2 Delivery Device Ventilator
[2019-05-28 05:05] LABS: Lymphocytes 4 % (20-55); Platelet Estimate Adequate; Segmented Neutrophils 90 % (50-85); Total Cells Counted 100
[2019-05-28 05:06] LABS: Hypochromasia 1+; Ovalocytes Few
[2019-05-28 05:07] LABS: Burr Cells Slight; Microcytosis 1+
[2019-05-28 05:08] LABS: Calcium 8.2 MG/DL (8.5-10.1); Osmolality,Calculated 316.1 MOS/KG (273-304)
[2019-05-28 05:25] LABS: Albumin 1.1 G/DL (3.4-5.0); Bilirubin,Total 7.9 MG/DL (0.2-1.0); Calcium 8.1 MG/DL (8.5-10.1); Osmolality,Calculated 314.1 MOS/KG (273-304); Total Protein 4.7 G/DL (6.4-8.3)
[2019-05-28] MEDS: HEPARIN 5,000 UNIT/1 ML VIAL SUBCUT SCH ×3 (07:41→21:31)
[2019-05-28] MEDS: PIPERACILLIN/TAZOBACTAM 3,375 MG in SODIUM CHLORIDE 0.9% 100 ML IV SCH ×3 (08:44→23:11)
[2019-05-28] MEDS: LEVOFLOXACIN INJ 250 MG in PREMIX 1 EACH IV SCH (08:45)
[2019-05-28] MEDS: AMIODARONE 200 MG TABLET NG SCH ×2 (08:45→20:50)
[2019-05-28] MEDS: SODIUM BICARBONATE 650 MG TABLET PER TUBE SCH ×3 (08:46→20:50)
[2019-05-28] MEDS: ASPIRIN EC 81 MG TABLET PO SCH (08:46)
[2019-05-28] MEDS: DOCUSATE SODIUM 100 MG CAPSULE PO SCH (08:46)
[2019-05-28] MEDS: FERROUS SULFATE 325 MG TABLET PO SCH (08:46)
[2019-05-28] MEDS: ASCORBIC ACID 500 MG TABLET PO SCH ×2 (08:46→20:50)
[2019-05-28] MEDS: PARoxetine 10 MG TABLET PO SCH (08:46)
[2019-05-28] MEDS: PANTOPRAZOLE 40 MG VIAL IV SCH ×2 (08:46→20:49)
[2019-05-28] MEDS: CHLORHEXIDINE 0.12% ORAL RINSE 60 ML BOTTLE SWISH/SPIT SCH ×2 (08:47→20:50)
[2019-05-28] MEDS ORDERED: ALBUMIN 25% 25 GM in PREMIX 1 EACH IV ONE (10:30)
[2019-05-28] MEDS: DEXTROSE 10% 250 ML BAG IV PRN ×2 (12:16→17:43)
[2019-05-28] MEDS: ALBUMIN 25% 12.5 GM in PREMIX 1 EACH IV SCH ×2 (13:50→17:36)
[2019-05-29] MEDS: ALBUMIN 25% 12.5 GM in PREMIX 1 EACH IV SCH ×3 (01:54→17:19)
[2019-05-29 04:35] LABS: Basophils % 0.1 % (0.0-0.8); Eosinophils # 0.1 10*3/uL (0.0-0.87); Eosinophils % 0.8 % (0.00-10.9); Hematocrit 26.2 VOL% (42.0-52.0); Hemoglobin 8.5 GM/DL (14.0-18.0); Immature Granulocytes % 2.2 %; Immature Granulocytes Absolute 0.32 #; Lymphocytes # 0.7 10*3/uL (1.4-4.0); Lymphocytes % 4.9 % (21.2-54.2); Mean Corpuscular HGB Conc 32.4 GM/DL (32-36); Mean Corpuscular Volume 94.2 FL (87-102); Mean Platelet Volume 12.5 FL (9.6-12.0); Monocytes % 5.3 % (1.7-12.7); NRBC # 0.07 10*3/uL; Neutrophils % 86.7 % (38.7-73.9); Platelet Count 144 T/CUMM (130-400); Red Blood Count 2.78 MC/CUMM (3.8-5.5); Red Cell Distribution Width 22.6 % (9.3-17.3); White Blood Count 14.5 T/CUMM (4-12)
[2019-05-29 04:58] LABS: Albumin 1.7 G/DL (3.4-5.0); Bilirubin,Total 9.9 MG/DL (0.2-1.0); Calcium 8.3 MG/DL (8.5-10.1); Osmolality,Calculated 297.4 MOS/KG (273-304); Total Protein 4.9 G/DL (6.4-8.3)
[2019-05-29] MEDS: HEPARIN 5,000 UNIT/1 ML VIAL SUBCUT SCH ×3 (05:05→21:17)
[2019-05-29 05:18] LABS: Band Neutrophils 1 % (0-10); Hypochromasia 1+; Lymphocytes 10 % (20-55); Microcytosis Slight; Platelet Estimate Adequate; Segmented Neutrophils 82 % (50-85); Total Cells Counted 100
[2019-05-29] MEDS: PIPERACILLIN/TAZOBACTAM 3,375 MG in SODIUM CHLORIDE 0.9% 100 ML IV SCH ×3 (06:26→22:31)
[2019-05-29 08:09] LABS: ABG Base Excess -10.2 MMOL/L (-2.5-2.5); ABG HCO3 16.3 MMOL/L (20-26); ABG Oxygen Saturation 96.6 % (95-100); ABG PCO2 34.3 MM HG (35-48); ABG PH 7.274 (7.35-7.45); ABG TCO2 14.9 MMOL/L (23-27)
[2019-05-29] MEDS: PANTOPRAZOLE 40 MG VIAL IV SCH ×2 (08:31→21:17)
[2019-05-29] MEDS: AMIODARONE 200 MG TABLET NG SCH ×2 (08:31→21:18)
[2019-05-29] MEDS: ASPIRIN EC 81 MG TABLET PO SCH (08:31)
[2019-05-29] MEDS: PARoxetine 10 MG TABLET PO SCH (08:31)
[2019-05-29] MEDS: FERROUS SULFATE 325 MG TABLET PO SCH (08:31)
[2019-05-29] MEDS: DOCUSATE SODIUM 100 MG CAPSULE PO SCH (08:31)
[2019-05-29] MEDS: SODIUM BICARBONATE 650 MG TABLET PER TUBE SCH ×3 (08:31→21:17)
[2019-05-29] MEDS: CHLORHEXIDINE 0.12% ORAL RINSE 60 ML BOTTLE SWISH/SPIT SCH ×2 (08:32→21:18)
[2019-05-29] MEDS: LEVOFLOXACIN INJ 250 MG in PREMIX 1 EACH IV SCH (08:33)
[2019-05-29] MEDS: ASCORBIC ACID 500 MG TABLET PO SCH ×2 (08:55→21:11)
[2019-05-29] MEDS ORDERED: ASCORBIC ACID 500 MG TABLET PO ONE (09:00)
[2019-05-29] MEDS: DEXTROSE 10% 250 ML BAG IV PRN ×2 (12:08→17:34)
[2019-05-29] MEDS: PHENYLEPHRINE DRIP 40 MG/250 ML PREMIX IV PRN (20:37)
[2019-05-30] MEDS: ALBUMIN 25% 12.5 GM in PREMIX 1 EACH IV SCH ×3 (02:13→19:33)
[2019-05-30 04:22] LABS: Basophils % 0.1 % (0.0-0.8); Eosinophils # 0.1 10*3/uL (0.0-0.87); Eosinophils % 0.4 % (0.00-10.9); Hematocrit 26.4 VOL% (42.0-52.0); Hemoglobin 8.5 GM/DL (14.0-18.0); Immature Granulocytes % 2.1 %; Lymphocytes # 0.7 10*3/uL (1.4-4.0); Lymphocytes % 4.8 % (21.2-54.2); Mean Corpuscular HGB Conc 32.2 GM/DL (32-36); Mean Corpuscular Volume 95.3 FL (87-102); Mean Platelet Volume 12.8 FL (9.6-12.0); NRBC # 0.17 10*3/uL; Neutrophils % 87.6 % (38.7-73.9); Platelet Count 144 T/CUMM (130-400); Red Blood Count 2.77 MC/CUMM (3.8-5.5); Red Cell Distribution Width 23.2 % (9.3-17.3); White Blood Count 14.2 T/CUMM (4-12)
[2019-05-30 04:43] LABS: Hypochromasia 1+; Lymphocytes 6 % (20-55); Nucleated Red Blood Cells 1 (0-5); Segmented Neutrophils 89 % (50-85); Total Cells Counted 100
[2019-05-30 04:44] LABS: Platelet Estimate Adequate
[2019-05-30 04:47] LABS: ABG Base Excess -11.9 MMOL/L (-2.5-2.5); ABG HCO3 15.2 MMOL/L (20-26); ABG Oxygen Saturation 97.4 % (95-100); ABG PCO2 34.7 MM HG (35-48); ABG PH 7.238 (7.35-7.45); ABG TCO2 13.5 MMOL/L (23-27); Allen Test Positive; Pt O2 Delivery Device Ventilator
[2019-05-30 04:52] LABS: Albumin 1.9 G/DL (3.4-5.0); Bilirubin,Direct 9.08 MG/DL (0.0-0.20); Bilirubin,Indirect 1.7 MG/DL (0.0-1.0); Bilirubin,Total 10.8 MG/DL (0.2-1.0)
[2019-05-30] MEDS: DEXTROSE 10% 250 ML BAG IV PRN ×2 (05:21→18:12)
[2019-05-30] MEDS: HEPARIN 5,000 UNIT/1 ML VIAL SUBCUT SCH ×3 (05:22→21:55)
[2019-05-30 05:26] LABS: Albumin 1.8 G/DL (3.4-5.0); Bilirubin,Total 10.9 MG/DL (0.2-1.0); Calcium 7.8 MG/DL (8.5-10.1); Osmolality,Calculated 306.4 MOS/KG (273-304); Total Protein 4.3 G/DL (6.4-8.3)
[2019-05-30] MEDS: PIPERACILLIN/TAZOBACTAM 3,375 MG in SODIUM CHLORIDE 0.9% 100 ML IV SCH ×2 (06:57→15:56)
[2019-05-30] MEDS: LEVOFLOXACIN INJ 250 MG in PREMIX 1 EACH IV SCH (09:56)
[2019-05-30] MEDS: PANTOPRAZOLE 40 MG VIAL IV SCH ×2 (10:04→20:51)
[2019-05-30] MEDS: PARoxetine 10 MG TABLET PO SCH (10:11)
[2019-05-30] MEDS: ASPIRIN EC 81 MG TABLET PO SCH (10:11)
[2019-05-30] MEDS: SODIUM BICARBONATE 650 MG TABLET PER TUBE SCH ×3 (10:11→20:51)
[2019-05-30] MEDS: CHLORHEXIDINE 0.12% ORAL RINSE 60 ML BOTTLE SWISH/SPIT SCH ×2 (10:12→21:09)
[2019-05-30] MEDS: DOCUSATE SODIUM 100 MG CAPSULE PO SCH (10:12)
[2019-05-30] MEDS: FERROUS SULFATE 325 MG TABLET PO SCH (10:12)
[2019-05-30] MEDS: PHENYLEPHRINE DRIP 40 MG/250 ML PREMIX IV PRN (13:41)
[2019-05-30] MEDS: ASCORBIC ACID 500 MG TABLET PO SCH ×2 (19:31→21:00)
[2019-05-30] MEDS ORDERED: PIPERACILLIN/TAZOBACTAM 3,375 MG in SODIUM CHLORIDE 0.9% 100 ML IV SCH (20:00)
[2019-05-30] MEDS: AMIODARONE 200 MG TABLET NG SCH (20:21)
[2019-05-31] MEDS: ALBUMIN 25% 12.5 GM in PREMIX 1 EACH IV SCH ×2 (02:03→10:28)
[2019-05-31] MEDS: PHENYLEPHRINE DRIP 40 MG/250 ML PREMIX IV PRN ×2 (03:41→11:38)
[2019-05-31] MEDS: PIPERACILLIN/TAZOBACTAM 3,375 MG in SODIUM CHLORIDE 0.9% 100 ML IV SCH ×2 (03:48→15:38)
[2019-05-31 04:59] LABS: ABG Base Excess -7.9 MMOL/L (-2.5-2.5); ABG HCO3 17.5 MMOL/L (20-26); ABG Oxygen Saturation 97.4 % (95-100); ABG PCO2 35.3 MM HG (35-48); ABG PH 7.313 (7.35-7.45); ABG PO2 113.8 MM HG (80-95); ABG TCO2 18.6 MMOL/L (23-27); Allen Test Positive; Pt O2 Delivery Device Ventilator
[2019-05-31 05:11] LABS: Bilirubin,Total 11.51 MG/DL (0.2-1.0); Calcium 7.7 MG/DL (8.5-10.1); Total Protein 5.1 G/DL (6.4-8.3)
[2019-05-31 05:12] LABS: Albumin 1.8 G/DL (3.4-5.0); Osmolality,Calculated 292.2 MOS/KG (273-304)
[2019-05-31] MEDS: HEPARIN 5,000 UNIT/1 ML VIAL SUBCUT SCH ×3 (05:57→22:02)
[2019-05-31] MEDS: PANTOPRAZOLE 40 MG VIAL IV SCH ×2 (08:43→20:41)
[2019-05-31] MEDS: SODIUM BICARBONATE 650 MG TABLET PER TUBE SCH ×3 (08:43→20:41)
[2019-05-31] MEDS: FERROUS SULFATE 325 MG TABLET PO SCH (08:44)
[2019-05-31] MEDS: DOCUSATE SODIUM 100 MG CAPSULE PO SCH (08:44)
[2019-05-31] MEDS: ASPIRIN EC 81 MG TABLET PO SCH (08:45)
[2019-05-31] MEDS: PARoxetine 10 MG TABLET PO SCH (08:45)
[2019-05-31] MEDS: LEVOFLOXACIN INJ 250 MG in PREMIX 1 EACH IV SCH (09:17)
[2019-05-31] MEDS: CHLORHEXIDINE 0.12% ORAL RINSE 60 ML BOTTLE SWISH/SPIT SCH ×2 (09:27→20:47)
[2019-05-31] MEDS: ASCORBIC ACID 500 MG TABLET PO SCH ×2 (09:28→20:42)
[2019-06-01 04:33] LABS: Allen Test Positive; Pt O2 Delivery Device Ventilator
[2019-06-01 04:36] LABS: ABG Base Excess -9.6 MMOL/L (-2.5-2.5); ABG HCO3 16.7 MMOL/L (20-26); ABG Oxygen Saturation 97.4 % (95-100); ABG PH 7.271 (7.35-7.45); ABG TCO2 15.6 MMOL/L (23-27)
[2019-06-01] MEDS: PIPERACILLIN/TAZOBACTAM 3,375 MG in SODIUM CHLORIDE 0.9% 100 ML IV SCH ×2 (04:45→15:23)
[2019-06-01 05:24] LABS: Basophils % 0.2 % (0.0-0.8); Eosinophils # 0.1 10*3/uL (0.0-0.87); Eosinophils % 0.6 % (0.00-10.9); Hematocrit 25.9 VOL% (42.0-52.0); Hemoglobin 8.2 GM/DL (14.0-18.0); Immature Granulocytes Absolute 0.61 #; Lymphocytes # 0.9 10*3/uL (1.4-4.0); Mean Corpuscular HGB Conc 31.7 GM/DL (32-36); Mean Corpuscular Volume 97.4 FL (87-102); Mean Platelet Volume 12.7 FL (9.6-12.0); Monocytes % 7.5 % (1.7-12.7); NRBC # 0.17 10*3/uL; Neutrophils % 79.7 % (38.7-73.9); Platelet Count 177 T/CUMM (130-400); Red Blood Count 2.66 MC/CUMM (3.8-5.5); Red Cell Distribution Width 24.5 % (9.3-17.3); White Blood Count 12.2 T/CUMM (4-12)
[2019-06-01] MEDS: HEPARIN 5,000 UNIT/1 ML VIAL SUBCUT SCH ×3 (05:49→21:49)
[2019-06-01 05:53] LABS: Albumin 1.5 G/DL (3.4-5.0); Bilirubin,Direct 10.12 MG/DL (0.0-0.20); Bilirubin,Indirect 1.8 MG/DL (0.0-1.0); Bilirubin,Total 11.9 MG/DL (0.2-1.0); Total Protein 5.2 G/DL (6.4-8.3)
[2019-06-01 06:45] LABS: Anisocytosis 2+; Hypochromasia 2+; Lymphocytes 7 % (20-55); Macrocytosis 2+; Metamyelocytes 2 %; Nucleated Red Blood Cells 2 (0-5); Ovalocytes 1+; Platelet Estimate Normal; Polychromasia Few; Segmented Neutrophils 82 % (50-85); Target Cells 1+; Total Cells Counted 100
[2019-06-01] MEDS: ASPIRIN EC 81 MG TABLET PO SCH (08:21)
[2019-06-01] MEDS: ASCORBIC ACID 500 MG TABLET PO SCH ×2 (08:21→20:49)
[2019-06-01] MEDS: SODIUM BICARBONATE 650 MG TABLET PER TUBE SCH ×3 (08:21→20:48)
[2019-06-01] MEDS: PANTOPRAZOLE 40 MG VIAL IV SCH ×2 (08:21→20:48)
[2019-06-01] MEDS: PARoxetine 10 MG TABLET PO SCH (08:21)
[2019-06-01] MEDS: FERROUS SULFATE 325 MG TABLET PO SCH (08:22)
[2019-06-01] MEDS: DOCUSATE SODIUM 100 MG CAPSULE PO SCH (08:22)
[2019-06-01] MEDS: LEVOFLOXACIN INJ 250 MG in PREMIX 1 EACH IV SCH (08:23)
[2019-06-01] MEDS: CHLORHEXIDINE 0.12% ORAL RINSE 60 ML BOTTLE SWISH/SPIT SCH ×2 (10:18→20:49)
[2019-06-01] MEDS ORDERED: ALBUMIN 25% 25 GM in PREMIX 1 EACH IV ONE ×2 (11:08→11:30)
[2019-06-01] MEDS: PHENYLEPHRINE DRIP 40 MG/250 ML PREMIX IV PRN (12:02)
[2019-06-01] MEDS: BACITRACIN OINT 28.35 GM TUBE TOP SCH (15:22)
[2019-06-02 02:37] LABS: Basophils % 0.3 % (0.0-0.8); Eosinophils # 0.2 10*3/uL (0.0-0.87); Eosinophils % 1.4 % (0.00-10.9); Hematocrit 23.9 VOL% (42.0-52.0); Hemoglobin 7.4 GM/DL (14.0-18.0); Immature Granulocytes % 5.5 %; Immature Granulocytes Absolute 0.59 #; Lymphocytes # 0.8 10*3/uL (1.4-4.0); Lymphocytes % 7.1 % (21.2-54.2); Mean Platelet Volume 12.2 FL (9.6-12.0); Monocytes % 9.7 % (1.7-12.7); NRBC # 0.09 10*3/uL; Platelet Count 161 T/CUMM (130-400); Red Blood Count 2.44 MC/CUMM (3.8-5.5); Red Cell Distribution Width 24.3 % (9.3-17.3); White Blood Count 10.8 T/CUMM (4-12)
[2019-06-02] MEDS: PHENYLEPHRINE DRIP 40 MG/250 ML PREMIX IV PRN (02:49)
[2019-06-02 03:28] LABS: Albumin 1.6 G/DL (3.4-5.0); Bilirubin,Total 11.7 MG/DL (0.2-1.0); Calcium 8.1 MG/DL (8.5-10.1); Total Protein 4.2 G/DL (6.4-8.3)
[2019-06-02 03:29] LABS: Albumin 1.4 G/DL (3.4-5.0); Bilirubin,Direct 9.58 MG/DL (0.0-0.20); Bilirubin,Indirect 2.3 MG/DL (0.0-1.0); Bilirubin,Total 11.9 MG/DL (0.2-1.0); Total Protein 4.8 G/DL (6.4-8.3)
[2019-06-02 04:02] LABS: ABG HCO3 20.2 MMOL/L (20-26); ABG PCO2 37.6 MM HG (35-48); ABG PH 7.348 (7.35-7.45); ABG PO2 123.5 MM HG (80-95); ABG TCO2 21.4 MMOL/L (23-27)
[2019-06-02 04:18] LABS: Eosinophils 2 % (0-10); Lymphocytes 4 % (20-55); Nucleated Red Blood Cells 1 (0-5); Segmented Neutrophils 87 % (50-85); Total Cells Counted 100
[2019-06-02 04:19] LABS: Hypochromasia 1+; Platelet Estimate Normal; Polychromasia 1+
[2019-06-02 04:20] LABS: Target Cells Few
[2019-06-02] MEDS: PIPERACILLIN/TAZOBACTAM 3,375 MG in SODIUM CHLORIDE 0.9% 100 ML IV SCH ×2 (04:32→15:31)
[2019-06-02] MEDS: HEPARIN 5,000 UNIT/1 ML VIAL SUBCUT SCH ×3 (05:03→21:15)
[2019-06-02] MEDS: DEXTROSE 10% 250 ML BAG IV PRN ×2 (05:23→17:40)
[2019-06-02] MEDS: LEVOFLOXACIN INJ 250 MG in PREMIX 1 EACH IV SCH (08:28)
[2019-06-02] MEDS: PANTOPRAZOLE 40 MG VIAL IV SCH ×2 (08:29→21:16)
[2019-06-02] MEDS: SODIUM BICARBONATE 650 MG TABLET PER TUBE SCH ×3 (08:37→21:15)
[2019-06-02] MEDS: FERROUS SULFATE 325 MG TABLET PO SCH (08:38)
[2019-06-02] MEDS: CHLORHEXIDINE 0.12% ORAL RINSE 60 ML BOTTLE SWISH/SPIT SCH ×2 (08:38→21:16)
[2019-06-02] MEDS: DOCUSATE SODIUM 100 MG CAPSULE PO SCH (08:38)
[2019-06-02] MEDS: PARoxetine 10 MG TABLET PO SCH (08:38)
[2019-06-02] MEDS: ASPIRIN EC 81 MG TABLET PO SCH (08:38)
[2019-06-02] MEDS: ASCORBIC ACID 500 MG TABLET PO SCH ×2 (08:38→21:15)
[2019-06-02] MEDS: BACITRACIN OINT 28.35 GM TUBE TOP SCH (08:38)
[2019-06-02] MEDS ORDERED: SODIUM CHLORIDE 0.9% 1,000 ML IV PRN (08:43)
[2019-06-02] MEDS: MORPHINE 4 MG/1 ML VIAL IV PRN ×2 (15:58→20:14)
[2019-06-03] MEDS: MORPHINE 4 MG/1 ML VIAL IV PRN (00:12)
[2019-06-03 01:11] LABS: Hematocrit 33.1 VOL% (42.0-52.0)
[2019-06-03 01:12] LABS: Hemoglobin 10.6 GM/DL (14.0-18.0)
[2019-06-03] MEDS: HEPARIN 5,000 UNIT/1 ML VIAL SUBCUT SCH ×3 (05:05→23:42)
[2019-06-03] MEDS: PIPERACILLIN/TAZOBACTAM 3,375 MG in SODIUM CHLORIDE 0.9% 100 ML IV SCH ×2 (05:05→15:23)
[2019-06-03 05:51] LABS: Basophils % 0.4 % (0.0-0.8); Eosinophils # 0.1 10*3/uL (0.0-0.87); Eosinophils % 1.1 % (0.00-10.9); Hematocrit 31.6 VOL% (42.0-52.0); Hemoglobin 10.3 GM/DL (14.0-18.0); Immature Granulocytes % 4.3 %; Immature Granulocytes Absolute 0.49 #; Lymphocytes # 0.7 10*3/uL (1.4-4.0); Lymphocytes % 6.2 % (21.2-54.2); Mean Corpuscular HGB Conc 32.6 GM/DL (32-36); Mean Corpuscular Volume 93.2 FL (87-102); Mean Platelet Volume 12.3 FL (9.6-12.0); Monocytes % 5.8 % (1.7-12.7); NRBC # 0.08 10*3/uL; Neutrophils % 82.2 % (38.7-73.9); Platelet Count 174 T/CUMM (130-400); Red Blood Count 3.39 MC/CUMM (3.8-5.5); Red Cell Distribution Width 21.3 % (9.3-17.3); White Blood Count 11.4 T/CUMM (4-12)
[2019-06-03] MEDS: LEVOFLOXACIN INJ 250 MG in PREMIX 1 EACH IV SCH (08:23)
[2019-06-03] MEDS: PANTOPRAZOLE 40 MG VIAL IV SCH ×2 (08:23→23:30)
[2019-06-03] MEDS: ASCORBIC ACID 500 MG TABLET PO SCH ×2 (08:23→23:41)
[2019-06-03] MEDS: PARoxetine 10 MG TABLET PO SCH (08:24)
[2019-06-03] MEDS: BACITRACIN OINT 28.35 GM TUBE TOP SCH (08:24)
[2019-06-03] MEDS: FERROUS SULFATE 325 MG TABLET PO SCH (08:24)
[2019-06-03] MEDS: SODIUM BICARBONATE 650 MG TABLET PER TUBE SCH ×3 (08:24→23:40)
[2019-06-03] MEDS: ASPIRIN EC 81 MG TABLET PO SCH (08:24)
[2019-06-03] MEDS: DOCUSATE SODIUM 100 MG CAPSULE PO SCH (08:24)
[2019-06-03] MEDS: CHLORHEXIDINE 0.12% ORAL RINSE 60 ML BOTTLE SWISH/SPIT SCH ×2 (08:25→23:31)
[2019-06-04] MEDS: PIPERACILLIN/TAZOBACTAM 3,375 MG in SODIUM CHLORIDE 0.9% 100 ML IV SCH (04:49)
[2019-06-04 05:32] LABS: Calcium 8.2 MG/DL (8.5-10.1); Osmolality,Calculated 310.2 MOS/KG (273-304)
[2019-06-04 05:36] LABS: Albumin 1.1 G/DL (3.4-5.0); Bilirubin,Direct 11.19 MG/DL (0.0-0.20); Total Protein 4.2 G/DL (6.4-8.3)
[2019-06-04] MEDS: HEPARIN 5,000 UNIT/1 ML VIAL SUBCUT SCH ×3 (05:36→21:28)
[2019-06-04 05:41] LABS: Bilirubin,Indirect 2.7 MG/DL (0.0-1.0); Bilirubin,Total 13.9 MG/DL (0.2-1.0)
[2019-06-04] MEDS: MORPHINE 4 MG/1 ML VIAL IV PRN (07:42)
[2019-06-04] MEDS: CHLORHEXIDINE 0.12% ORAL RINSE 60 ML BOTTLE SWISH/SPIT SCH ×2 (08:00→21:17)
[2019-06-04] MEDS: LEVOFLOXACIN INJ 250 MG in PREMIX 1 EACH IV SCH (08:40)
[2019-06-04 09:07] LABS: INR 1.3; Partial Thromboplastin Time 39.3 SECS (23.9-33.8)
[2019-06-04 10:11] VITALS: BP 100/49
[2019-06-04] MEDS: BACITRACIN OINT 28.35 GM TUBE TOP SCH (12:30)
[2019-06-04] MEDS: PARoxetine 10 MG TABLET PO SCH (15:45)
[2019-06-04] MEDS: SODIUM BICARBONATE 650 MG TABLET PER TUBE SCH ×3 (15:45→21:16)
[2019-06-04] MEDS: ASPIRIN EC 81 MG TABLET PO SCH (15:45)
[2019-06-04] MEDS: FERROUS SULFATE 325 MG TABLET PO SCH (15:45)
[2019-06-04] MEDS: DOCUSATE SODIUM 100 MG CAPSULE PO SCH (15:45)
[2019-06-04] MEDS: ASCORBIC ACID 500 MG TABLET PO SCH ×2 (15:45→21:16)
[2019-06-04] MEDS: PANTOPRAZOLE 40 MG VIAL IV SCH ×2 (15:51→21:16)
[2019-06-05] MEDS: PHENYLEPHRINE DRIP 40 MG/250 ML PREMIX IV PRN (00:49)
[2019-06-05 03:58] LABS: Albumin 0.9 G/DL (3.4-5.0); Calcium 8.4 MG/DL (8.5-10.1); Total Protein 4.4 G/DL (6.4-8.3)
== END 2019-06-05 03:41 | disposition expired | DRG 235 ==
LOC: N.TELES 08:47 → N.CVR 05-10 11:48 → N.TELES 05-11 10:05 → N.ICU 05-13 17:43 → N.CVR 05-21 18:42 → N.CL 05-29 23:40 → N.CLINP 05-29 23:42
PROC: IRTHORA (2019-05-29 12:30)